=== PATIENT | male | born 1945 | race Caucasian/White ===

== ENCOUNTER 2020-07-26 09:58 | Outpatient (REF) | payer MEDICARE, SELFPAY ==
[2020-07-26 13:27] LABS: MANUAL DIFF FLAG NO
[2020-07-26 13:39] LABS: Basophils Percent Auto 0.6 % (0-2); Eosinophils Absolute Auto 0.4 X10*3/uL (0.0-0.4); Hematocrit 42.6 % (42-52); Hemoglobin 13.5 g/dl (14.0-18.0); Imm Gran Abs Auto 0.03 X10*3/uL (0.00-0.03); Imm Gran Pct Auto 0.4 % (0.0-0.4); Lymphocytes Absolute Auto 1.5 X10*3/uL (1.2-4.9); Mean Corpuscular HGB Conc 31.7 g/dl (31.0-36.0); Mean Corpuscular Hemoglobin 30.5 pg (27.0-33.0); Mean Corpuscular Volume 96.2 fL (80-98); Mean Platelet Volume 9.9 fL (9.4-12.4); Monocytes Absolute Auto 0.8 X10*3/uL (0.1-1.2); Neutrophils Absolute Auto 4.3 X10*3/uL (2.0-8.3); Platelet Count 277 X10*3/uL (160-400); Red Blood Count 4.43 X10*6/uL (4.60-5.80); Red Cell Distribution Width 12.8 % (11.0-16.0)
[2020-07-26 14:02] LABS: Alanine Aminotransferase 19 U/L (0-40); Albumin Level 4.4 g/dL (3.5-5.0); Alkaline Phosphatase 71 U/L (39-117); Anion Gap 16 (12-20); Aspartate Amino Transferase 26 U/L (5-37); Bilirubin Total 0.3 mg/dL (0.0-1.0); Blood Urea Nitrogen 15 mg/dL (9-16); Calcium 8.7 mg/dL (8.4-10.2); Carbon Dioxide 24 mmol/L (22-29); Chloride 104 mmol/L (96-108); Estimated Glomerular Filt Rate > 60; Glucose Random 80 mg/dL (60-115); Potassium 5.3 mmol/l (3.3-5.1); Sodium 139 mmol/L (135-145); Total Protein 7.8 g/dL (6.5-8.0)
[2020-07-26 14:25] LABS: Free T4 (Free Thyroxine) 1.21 ng/dL (0.71-1.85); Thyroid Stimulating Hormone 0.34 mIU/mL (0.32-4.0)
== END 2020-07-26 09:59 | disposition home or self-care (01) ==
LOC: HO.10HDL 09:58
PROVIDERS: Visit Provider Internal Medicine
DX: I25.10 Atherosclerotic heart disease of native coronary artery without angina pectoris (principal); E03.9 Hypothyroidism, unspecified; J44.9 Chronic obstructive pulmonary disease, unspecified
CPT/HCPCS: 36415; 80053; 84439; 84443; 85025

== ENCOUNTER 2020-10-25 09:28 | Outpatient (REF) | payer MEDICARE, SELFPAY ==
[2020-10-25 10:08] LABS: MANUAL DIFF FLAG NO
[2020-10-25 10:14] LABS: Basophils Percent Auto 0.5 % (0-2); Eosinophils Absolute Auto 0.3 X10*3/uL (0.0-0.4); Eosinophils Percent Auto 3.9 % (0-4); Hematocrit 43.9 % (42-52); Hemoglobin 14.2 g/dl (14.0-18.0); Imm Gran Abs Auto 0.03 X10*3/uL (0.00-0.03); Imm Gran Pct Auto 0.4 % (0.0-0.4); Lymphocytes Absolute Auto 1.5 X10*3/uL (1.2-4.9); Lymphocytes Percent Auto 19.1 % (20-40); Mean Corpuscular HGB Conc 32.3 g/dl (31.0-36.0); Mean Corpuscular Hemoglobin 30.8 pg (27.0-33.0); Mean Corpuscular Volume 95.2 fL (80-98); Mean Platelet Volume 9.3 fL (9.4-12.4); Monocytes Absolute Auto 0.9 X10*3/uL (0.1-1.2); Monocytes Percent Auto 11.1 % (2-11); Platelet Count 261 X10*3/uL (160-400); Red Blood Count 4.61 X10*6/uL (4.60-5.80); Red Cell Distribution Width 12.7 % (11.0-16.0); White Blood Count 7.6 X10*3/uL (4.8-10.8)
[2020-10-25 10:44] LABS: Alanine Aminotransferase 21 U/L (0-40); Albumin Level 4.6 g/dL (3.5-5.0); Alkaline Phosphatase 75 U/L (39-117); Anion Gap 13 (12-20); Aspartate Amino Transferase 23 U/L (5-37); Bilirubin Total 0.4 mg/dL (0.0-1.0); Blood Urea Nitrogen 21 mg/dL (9-16); Calcium 9.1 mg/dL (8.4-10.2); Carbon Dioxide 26 mmol/L (22-29); Chloride 103 mmol/L (96-108); Estimated Glomerular Filt Rate > 60; Glucose Random 89 mg/dL (60-115); Potassium 5.5 mmol/l (3.3-5.1); Sodium 136 mmol/L (135-145)
[2020-10-25 11:08] LABS: Free T4 (Free Thyroxine) 1.21 ng/dL (0.71-1.85); Thyroid Stimulating Hormone 0.19 uIU/mL (0.32-4.0)
== END 2020-10-25 09:29 | disposition home or self-care (01) ==
LOC: HO.10HDL 09:28
PROVIDERS: Visit Provider Internal Medicine
DX: I25.10 Atherosclerotic heart disease of native coronary artery without angina pectoris (principal); J44.9 Chronic obstructive pulmonary disease, unspecified; E03.9 Hypothyroidism, unspecified
CPT/HCPCS: 36415; 80053; 84439; 84443; 85025

== ENCOUNTER 2021-01-24 09:57 | Outpatient (REF) | payer MEDICARE, SELFPAY ==
[2021-01-24 14:01] LABS: Alanine Aminotransferase 19 U/L (0-40); Albumin Level 4.5 g/dL (3.5-5.0); Alkaline Phosphatase 82 U/L (39-117); Anion Gap 16 (12-20); Aspartate Amino Transferase 20 U/L (5-37); Bilirubin Total 0.5 mg/dL (0.0-1.0); Blood Urea Nitrogen 15 mg/dL (9-16); Calcium 9.4 mg/dL (8.4-10.2); Carbon Dioxide 26 mmol/L (22-29); Chloride 103 mmol/L (96-108); Estimated Glomerular Filt Rate > 60; Glucose Random 92 mg/dL (60-115); Potassium 5.3 mmol/L (3.3-5.1); Sodium 140 mmol/L (135-145)
== END 2021-01-24 09:58 | disposition home or self-care (01) ==
LOC: HO.10HDL 09:57
PROVIDERS: Visit Provider Internal Medicine
DX: J44.9 Chronic obstructive pulmonary disease, unspecified (principal); E03.9 Hypothyroidism, unspecified; I25.10 Atherosclerotic heart disease of native coronary artery without angina pectoris
CPT/HCPCS: 36415; 80053

== ENCOUNTER 2021-04-29 11:22 | Outpatient (REF) | payer MEDICARE, SELFPAY | END 2021-04-29 11:23 | disposition home or self-care (01) | LOC: HO.LNP 11:22 | PROVIDERS: Visit Provider Nurse Practitioner Family | DX: Z20.822 Contact with and (suspected) exposure to COVID-19 (principal); J40 Bronchitis, not specified as acute or chronic | CPT/HCPCS: U0003; U0005 ==

== ENCOUNTER 2021-05-01 14:24 | Outpatient (REF) | payer MEDICARE, SELFPAY ==
--- NOTE | ~2021-05-01 | XR_ITS ---
EXAMINATION: XR CHEST CLINICAL INFORMATION: Covid positive, cough. COMPARISON: None TECHNIQUE: 2 views of the chest were obtained. FINDINGS: The lungs are hyperinflated but clear of acute process. The heart size and pulmonary vascularity is normal. There are median sternotomy sutures. There is a distal descending aortic stent in place. No gross bony abnormality seen. XR/XR chest 2V IMPRESSION: Unremarkable chest exam.
== END 2021-05-01 14:25 | disposition home or self-care (01) ==
LOC: HO.HMGCX 14:24
PROVIDERS: PCP Internal Medicine; Visit Provider Internal Medicine
DX: Z13.89 Encounter for screening for other disorder (principal)
CPT/HCPCS: 71046

== ENCOUNTER 2021-05-03 16:20 | Inpatient (IN) | payer MEDICARE, SELFPAY ==
[2021-05-03] VITALS (8 sets, daily range): BP systolic 117–146; BP diastolic 44–78; PULSE 76–98; RESP 16–22; TEMP 36.4–38.8; O2SAT 89–96; BMI 29.5
--- NOTE | 2021-05-03 | ECG_ITS ---
Test Reason : SOB Blood Pressure : / mmHG Vent. Rate : 093 BPM Atrial Rate : 093 BPM P-R Int : 224 ms QRS Dur : 144 ms QT Int : 376 ms P-R-T Axes : 061 -07 023 degrees QTc Int : 467 ms Sinus rhythm with 1st degree A-V block Possible Left atrial enlargement Right bundle branch block Possible Lateral infarct (cited on or before 20-NOV-2003) Inferior infarct (cited on or before 20-NOV-2003) Abnormal ECG When compared with ECG of 20-JUN-2019 17:02, No significant change was found Referred By: Rufino Olivas Electronically Signed By:MAGNUS MKCEE
--- NOTE | ~2021-05-03 | CT_ITS ---
EXAMINATION: CT ANGIOGRAM OF THE CHEST WITH AND WITHOUT CONTRAST (CT PULMONARY ANGIOGRAM FOR PE) CLINICAL INFORMATION: COVID-19 positive, elevated D-dimer, rule out PE COMPARISON: 06/20/2019 TECHNIQUE: Prior to contrast administration, noncontrast localization images were obtained. Subsequently, multidetector volumetric imaging was performed from the thoracic inlet to below the diaphragms following the administration of 71.2 mL Omnipaque 350 intravenous contrast. No contrast reaction reported Sagittal, coronal, and MIP oblique sagittal reformatted images were obtained on the CT workstation, uploaded to PACS, and reviewed. This CT examination was performed using dose optimization techniques as appropriate, variously including the following: *Automated exposure control *Adjustment of mA and/or kV according to patient size (this includes techniques or standardized protocols for targeted exams where dose is matched to indication/reason for exam; i.e. extremities or head) *Use of iterative reconstruction technique Total exam dose-length product 476 mGy-cm FINDINGS: QUALITY OF STUDY/CONTRAST BOLUS: Satisfactory at the central, lobar, and proximal segmental levels. Respiratory motion limits assessment in multiple areas at the more distal segmental and subsegmental branches. PULMONARY ARTERIES: No central or segmental pulmonary emboli. THORACIC AORTA: Calcific and fibrofatty atheromatous plaques are present throughout the thoracic aorta. 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 No evidence of dissection LUNG: Moderate to severe centrilobular pulmonary emphysema, most pronounced at the apices. Dependent atelectasis is present in the posterior and lateral basilar segments of the lower lobes. Patchy foci of groundglass attenuation are evident within the left upper lobe at the lingula and in the lateral aspect of the right middle lobe. These are nonspecific. No dense airspace consolidation. Central airways are clear. No pulmonary nodules. PLEURA: No pleural effusion or pneumothorax. MEDIASTINUM: Coronary artery calcifications. Heart appears normal in size. No pericardial effusion. No mediastinal or hilar adenopathy. No evidence of septal bowing or right heart strain. CHEST WALL/AXILLA: No axillary or internal mammary lymphadenopathy. Status post median sternotomy. OSSEOUS STRUCTURES: No acute fracture or malalignment. Moderate multilevel degenerative disc disease in the thoracic spine. UPPER ABDOMEN: Status post cholecystectomy. No acute abnormalities are identified in the upper abdomen. Vascular stent graft is again noted in the abdominal aorta with multiple stents at the ostia of the visceral branches. No reflux of contrast into the hepatic veins to suggest elevated right heart pressures. CT/CT angio chest PE protocol IMPRESSION: 1. No evidence of pulmonary embolus. 2. Moderate severe pulmonary emphysema. 3. Ill-defined foci groundglass attenuation in the lingula and lateral aspect of the right middle lobe which could correspond to multifocal bilateral pneumonia, but are not specific. No dense airspace consolidation. 4. Dependent atelectasis at the lung bases. VTE: negative
--- NOTE | ~2021-05-03 | XR_ITS ---
EXAMINATION: XR CHEST CLINICAL INFORMATION: COVID positive. Rule out pneumonia. COMPARISON: 05/01/2021 TECHNIQUE: Frontal view of the chest was obtained. FINDINGS: Lungs are hyperexpanded. Hyperlucencies in the upper lobes likely correspond to underlying emphysema. Minimal dependent atelectasis. No focal airspace consolidation. Sternal wires and cardiac leads overlie the chest. Cardiac and mediastinal contours are normal. Pulmonary vasculature is unremarkable. Bones are osteopenic. XR/XR chest 1V IMPRESSION: No acute pulmonary findings.
--- NOTE | ~2021-05-03 | XR_ITS ---
EXAMINATION: XR CHEST CLINICAL INFORMATION: Worsening hypoxia. COMPARISON: None TECHNIQUE: Frontal view of the chest was obtained. FINDINGS: There is increased lucency in the right lung apex with no distinct or visible pneumothorax. Right jugular central venous catheter is tip is in the right subclavian vein. The endotracheal tube tip is 1.3 cm above the alex. Enteric tube tip is below diaphragm. The lungs are expanded with significant increase interstitial markings in both lungs likely cord edema and/or interstitial pneumonitis. No pleural effusion is seen. Heart size is within normal limits. There are median sternotomy sutures and distal descending thoracic aortic stent in place. XR/XR chest 1V IMPRESSION: Support lines and catheters are similar to previous study with right jugular central venous catheter tip in the right subclavian vein. Diffuse bilateral lower lobe and midlung interstitial prominence question interstitial edema versus pneumonitis. There is increased lucency in the right upper lobe likely secondary to bullous changes. A pneumothorax is not visualized.. There is no pleural effusion either.
--- NOTE | ~2021-05-03 | XR_ITS ---
EXAMINATION: XR CHEST CLINICAL INFORMATION: Status post ETT and TLC placement. COMPARISON: Chest 05/03/2021. TECHNIQUE: Frontal view of the chest was obtained. FINDINGS: There is a new right central venous catheter with its tip extending the wrong direction towards the axillary vein. It needs to be repositioned. There is an endotracheal tube with its tip 1.5 cm above the alex. New endotracheal tube tip is below the diaphragm.. Both lungs are well-expanded with increased cyst in interstitial markings most prominent in the lung bases likely interstitial edema. There is no pleural effusion. Heart size enlarged. There is aortic stent in the distal descending and proximal abdominal aorta. No gross bony abnormality seen. XR/XR chest 1V IMPRESSION: Right jugular central venous catheter is directed to is a subclavian vein and needs to be repositioned. The endotracheal tube and enteric tube are in fair position. There is cardiomegaly with increased interstitial markings suggestive of edema.
--- NOTE | 2021-05-03 17:00 | ED_ITS ---
HPI - General Adult General Chief complaint: Dyspnea Stated complaint: SOB - covid+ Time Seen by Provider: 05/03/21 16:24 Source: patient Mode of arrival: EMS Limitations: other (Very hard of hearing) History of Present Illness HPI narrative: 75-year-old male who presents emergency department for evaluation of weakness and fall. Patient is very hard of hearing and was difficult to get information from him. He states that he was feeling very weak and fell. He denied hitting his head or having any injury from the fall. He states that he was unable to get up and called an ambulance. The patient was seen in the outpatient clinic on 04/29/2024 for evaluation of 4 days of cough. The patient was started on Zithromax and had a COVID-19 test which was positive. Patient states that he has been having an intermittent cough. He denied chest pain. He does feel short of breath at rest but denied dyspnea on exertion. He denied fever or chills. States that he has lost his appetite and has had very little food or fluid over the past 24 hours. He had 1 episode of diarrhea. The patient did have his 1st Moderna COVID-19 vaccination on April 22, 2021 and is due for his 2nd vaccination in May 2021. 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 Related Data Home Medications Medication Instructions Recorded Confirmed alprazolam 1 mg tablet 1 mg PO DAILY 05/03/21 05/03/21 amlodipine 10 mg tablet 10 mg PO DAILY 05/03/21 05/03/21 azithromycin 250 mg tablet 250 mg PO DAILY 05/03/21 05/03/21 gemfibrozil 600 mg tablet 600 mg PO BID 05/03/21 05/03/21 levothyroxine 125 mcg tablet 125 mcg PO DAILY 05/03/21 05/03/21 lisinopril 40 mg tablet 40 mg PO DAILY 05/03/21 05/03/21 omeprazole 20 mg capsule,delayed 20 mg PO BID 05/03/21 05/03/21 release rosuvastatin 40 mg tablet 40 mg PO DAILY 05/03/21 05/03/21 Allergies Allergy/AdvReac Type Severity Reaction Status Date / Time No Known Allergies Allergy Mild UNKNOWN Verified 05/03/21 16:27 Review of Systems Review of Systems: Yes all other systems are reviewed and are negative [facility] Past Medical History [facility] Narrative: Past medical history: Hypertension, coronary disease, myocardial infarction. Past surgical history: CABG 10 years prior. Social history: Patient was of the son. He is a former smoker and stop smoking 10 years prior. He occasionally drinks alcohol. He denies drug use. Medical History (Updated 05/03/21 @ 21:03 by Rufino Olivas MD) COVID-19 Social History Social History Alcohol intake: never Patient Tobacco Use Status: Tobacco use Unknown Use of substances other than those prescribed or required for medical reasons: No Advance Directives: No Advance Directives Information Provided: Yes Physical Exam Vital Signs: Vital Signs: Last Vital Signs Temp 97.6 F 05/03/21 20:33 Pulse 83 05/03/21 20:33 Resp 18 05/03/21 20:33 BP 143/66 H 05/03/21 20:33 Pulse Ox 95 05/03/21 20:33 Body Mass Index 29.5 Const: General: cooperative Orientation/consciousness: oriented to person and oriented to place Limitations: no limitations HENMT: Head: Yes normal to inspection, Yes normocephalic and Yes atraumatic Ears: external ears normal General nose exam: Normal external nose present Face and sinus: Yes normal facial exam Mouth: Normal oral and palatal mucosa present Throat: Yes posterior oropharynx normal Eyes: General: appearance normal, both eyes and all related structures Alignment and Position: alignment normal Periorbital: periorbital findings normal Eyelids: Yes eyelids normal Conjunctivae: conjunctivae normal Sclerae: sclerae normal Pupils: Equal, round and reactive pupils present Direct Ophthalmoscopy: normal light reflex Neck: Neck: Yes normal visual inspection and Yes supple Thyroid: Thyroid normal Chest: Chest palpation & inspection: normal inspection of the chest and normal palpation of entire chest wall Resp: Effort & Inspection: normal respiratory effort and able to speak in complete sentences Auscultation: clear to auscultation bilaterally, no crackles, no rales and no rhonchi Cardio: Rate: regular rate Rhythm: regular rhythm Heart sounds: S1 normal heart sound present, S2 normal heart sound present and no murmurs GI: Inspection: Yes normal to inspection Palpation (GI): Soft to palpation, nontender and no guarding Auscultation: normal bowel sounds : General: Yes no CVA tenderness Back/Spine/Pelvis: Back: no CVA tenderness Cervical Spine: normal cervical lordosis Thoracic/Lumbar Spine: thoracic and lumbar spine normal to inspection Skin: General skin exam: no rashes or lesions noted Lesions: no lesions Rashes: no rashes Trauma: no lacerations or abrasions Neuro: General: oriented to person and oriented to place Cranial nerves: Yes CN's II-XII intact bilaterally and Yes Equal, round and reactive pupils present Cognition (Neuro): normal cognition Motor exam (neuro): 5/5 motor strength present throughout Extrem: Right upper extremity: normal to inspection and full ROM Psych: Appearance: grossly normal and well kempt Mental Status: mental status grossly normal Speech and movement: Normal speech and movement present Attitude: cooperative Thought content: Normal thought content present Course Course Course Narrative: 75-year-old male he received 1 COVID-19 vaccination April 22, 2021 seen at the walk-in clinic on 04/29/2021 diagnosed with bronchitis started on Zithromax whose COVID 19 test was positive now presents with weakness, cough, shortness of breath, decreased appetite and poor oral intake and fall today secondary to weakness. Paramedics found the patient's O2 saturation to be 89% on room air. In the emergency department the patient had a rectal temperature of a 101.8? F, respiratory rate of 22 and O2 saturation of 90% on room air. Patient extremely hard of hearing otherwise his examination is unremarkable. Patient does meet SIRS criteria however this is most likely secondary to viral infection. Given his poor oral intake however I am concerned that he is dehydrated therefore he will be given 30 cc/kilogram IV fluid bolus. Laboratory evaluation, EKG and chest x-ray will be obtained. Patient will be treated with dexamethasone 6 mg IV. 2035: Laboratory evaluation revealed slightly low platelet count of a 217405, elevated PTT of 40.8, elevated D-dimer of 1881, low sodium 130, low bicarb of 17, elevated BUN creatinine of 281.45, elevated ferritin of 325, elevated high sensitive troponin of 39.7. Elevated CRP of 1.70. Lactic acid was normal at 2.0. was normal at 0.08. Chest x-ray was unremarkable. CT pulmonary angiogram PE protocol revealed no PE but the patient does have ill-defined ground-glass attenuation in the lingular and lateral aspect of the right middle lobe consistent with a multifocal bilateral pneumonia. These findings are consistent with COVID-19 pneumonia. Given his weakness is hypoxia, the patient only to be hospitalized for further management. I will discuss the patient's presentation with the covering hospitalist. 2100: I did discuss the patient's presentation with the covering hospitalist, Dr. Jeaneth Iglesias and the patient will be admitted to the [facility] for further treatment. 2121: Patient's repeat 3 hour high sensitivity troponin was 48.3, this is not a significant increase from the 1st value 39.7. Medical Decision Making Lab Data Result diagrams: 05/03/21 17:31 05/03/21 17:31 Labs: Lab Results 05/03/21 05/03/21 05/03/21 Range/Units 16:41 17:31 17:31 WBC 5.3 (4.8-10.8) X10*3/uL RBC 4.70 (4.60-5.80) X10*6/uL Hgb 14.2 (14.0-18.0) g/dl Hct 42.9 (42-52) % MCV 91.3 (80-98) fL MCH 30.2 (27.0-33.0) pg MCHC 33.1 (31.0-36.0) g/dl RDW 13.2 (11.0-16.0) % Plt Count 145 L D (160-400) X10*3/uL MPV 9.9 (9.4-12.4) fL Immature Gran % (Auto) 0.8 H (0.0-0.4) % Neut % (Auto) 79.9 H (45-73) % Lymph % (Auto) 10.5 L (20-40) % [place] % (Auto) 8.6 (2-11) % Eos % (Auto) 0.0 (0-4) % Baso % (Auto) 0.2 (0-2) % Lymph # (Auto) 0.6 L (1.2-4.9) X10*3/uL [place] # (Auto) 0.5 (0.1-1.2) X10*3/uL Eos # (Auto) 0.0 (0.0-0.4) X10*3/uL Baso # (Auto) 0.0 (0.0-0.2) X10*3/uL Abs Immat Gran (auto) 0.04 H (0.00-0.03) X10*3/uL Absolute Neuts (auto) 4.2 (2.0-8.3) X10*3/uL Absolute Nucleated RBC 0.000 (0.0-0.012) X10*3/uL Nucleated RBC % (auto) 0.0 (0.0-0.2) /100WBC PT 11.8 (9.9-13.0) SEC INR 1.0 (0.9-1.1) APTT 40.8 H (24.1-38.0) SEC D-Dimer 1881 NG/ML O2 Saturation % ABG pH at Pt Temp (7.35-7.45) ABG pH (Temp Correct) (7.35-7.45) ABG pCO2 at Pt Temp (32-45) mmHg ABG pCO2 (Temp Corrct (32-45) mmHg ABG pO2 at Pt Temp (83-108) mmHg ABG pO2 (Temp Correct (83-108) ABG HCO3 (22-26) mmol/L ABG Base Excess (Actual) mmol/L Sodium (135-145) mmol/L Potassium (3.3-5.1) mmol/L Chloride (96-108) mmol/L Carbon Dioxide (22-29) mmol/L Anion Gap (12-20) BUN (9-16) mg/dL Creatinine (0.5-1.4) mg/dL Estim Creat Clear Calc Estimated GFR POC Glucose 133 H (60-115) mg/dL Random Glucose (60-115) mg/dL Lactic Acid (0.5-2.0) mmol/L Calcium (8.4-10.2) mg/dL Ferritin (20-250) ng/mL Total Bilirubin (0.0-1.0) mg/dL Lactate Dehydrogenase (118-273) U/L Troponin I High Sens (<3.5-35.0) ng/L C-Reactive Protein (< or = 0.50) mg/dL Procalcitonin ng/mL 05/03/21 05/03/21 05/03/21 Range/Units 17:31 17:31 17:31 WBC (4.8-10.8) X10*3/uL RBC (4.60-5.80) X10*6/uL Hgb (14.0-18.0) g/dl Hct (42-52) % MCV (80-98) fL MCH (27.0-33.0) pg MCHC (31.0-36.0) g/dl RDW (11.0-16.0) % Plt Count (160-400) X10*3/uL MPV (9.4-12.4) fL Immature Gran % (Auto) (0.0-0.4) % Neut % (Auto) (45-73) % Lymph % (Auto) (20-40) % [place] % (Auto) (2-11) % Eos % (Auto) (0-4) % Baso % (Auto) (0-2) % Lymph # (Auto) (1.2-4.9) X10*3/uL [place] # (Auto) (0.1-1.2) X10*3/uL Eos # (Auto) (0.0-0.4) X10*3/uL Baso # (Auto) (0.0-0.2) X10*3/uL Abs Immat Gran (auto) (0.00-0.03) X10*3/uL Absolute Neuts (auto) (2.0-8.3) X10*3/uL Absolute Nucleated RBC (0.0-0.012) X10*3/uL Nucleated RBC % (auto) (0.0-0.2) /100WBC PT (9.9-13.0) SEC INR (0.9-1.1) APTT (24.1-38.0) SEC D-Dimer NG/ML O2 Saturation % ABG pH at Pt Temp (7.35-7.45) ABG pH (Temp Correct) (7.35-7.45) ABG pCO2 at Pt Temp (32-45) mmHg ABG pCO2 (Temp Corrct (32-45) mmHg ABG pO2 at Pt Temp (83-108) mmHg ABG pO2 (Temp Correct (83-108) ABG HCO3 (22-26) mmol/L ABG Base Excess (Actual) mmol/L Sodium 130 L (135-145) mmol/L Potassium 4.3 (3.3-5.1) mmol/L Chloride 99 (96-108) mmol/L Carbon Dioxide 17 L (22-29) mmol/L Anion Gap 18 (12-20) BUN 28 H D (9-16) mg/dL Creatinine 1.45 H (0.5-1.4) mg/dL Estim Creat Clear Calc 49.0 Estimated GFR 47 POC Glucose (60-115) mg/dL Random Glucose 118 H (60-115) mg/dL Lactic Acid 2.0 (0.5-2.0) mmol/L Calcium 8.5 D (8.4-10.2) mg/dL Ferritin 325 H (20-250) ng/mL Total Bilirubin 0.4 (0.0-1.0) mg/dL Lactate Dehydrogenase 224 (118-273) U/L Troponin I High Sens 39.7 H* (<3.5-35.0) ng/L C-Reactive Protein 1.70 H (< or = 0.50) mg/dL Procalcitonin ng/mL 05/03/21 05/03/21 05/03/21 Range/Units 17:31 17:31 20:37 WBC (4.8-10.8) X10*3/uL RBC (4.60-5.80) X10*6/uL Hgb (14.0-18.0) g/dl Hct (42-52) % MCV (80-98) fL MCH (27.0-33.0) pg MCHC (31.0-36.0) g/dl RDW (11.0-16.0) % Plt Count (160-400) X10*3/uL MPV (9.4-12.4) fL Immature Gran % (Auto) (0.0-0.4) % Neut % (Auto) (45-73) % Lymph % (Auto) (20-40) % [place] % (Auto) (2-11) % Eos % (Auto) (0-4) % Baso % (Auto) (0-2) % Lymph # (Auto) (1.2-4.9) X10*3/uL [place] # (Auto) (0.1-1.2) X10*3/uL Eos # (Auto) (0.0-0.4) X10*3/uL Baso # (Auto) (0.0-0.2) X10*3/uL Abs Immat Gran (auto) (0.00-0.03) X10*3/uL Absolute Neuts (auto) (2.0-8.3) X10*3/uL Absolute Nucleated RBC (0.0-0.012) X10*3/uL Nucleated RBC % (auto) (0.0-0.2) /100WBC PT (9.9-13.0) SEC INR (0.9-1.1) APTT (24.1-38.0) SEC D-Dimer NG/ML O2 Saturation 94.0 % ABG pH at Pt Temp 7.40 (7.35-7.45) ABG pH (Temp Correct) 7.38 (7.35-7.45) ABG pCO2 at Pt Temp 26 L (32-45) mmHg ABG pCO2 (Temp Corrct 27 L (32-45) mmHg ABG pO2 at Pt Temp 82 L (83-108) mmHg ABG pO2 (Temp Correct 89 (83-108) ABG HCO3 16 L (22-26) mmol/L ABG Base Excess (Actual) -6.4 mmol/L Sodium (135-145) mmol/L Potassium (3.3-5.1) mmol/L Chloride (96-108) mmol/L Carbon Dioxide (22-29) mmol/L Anion Gap (12-20) BUN (9-16) mg/dL Creatinine (0.5-1.4) mg/dL Estim Creat Clear Calc Estimated GFR POC Glucose (60-115) mg/dL Random Glucose (60-115) mg/dL Lactic Acid (0.5-2.0) mmol/L Calcium (8.4-10.2) mg/dL Ferritin (20-250) ng/mL Total Bilirubin (0.0-1.0) mg/dL Lactate Dehydrogenase (118-273) U/L Troponin I High Sens 48.3 H* (<3.5-35.0) ng/L C-Reactive Protein (< or = 0.50) mg/dL Procalcitonin 0.08 ng/mL Imaging Data CT pulmonary angiogram PE study: Radiologist's impression: Launch?Image [id number] [place] [address] CT Scan Report Signed Patient: Stefan Carvajal MR#: [id number] : 1945 Acct:[id number] Age/Sex: 75 / M ADM Date: 05/03/21 Loc: HO.ED Attending Dr: Ordering Physician: Rufino Olivas MD Date of Service: 05/03/21 Procedure(s): CT angio chest PE protocol Accession Number(s): [id number] cc: Rufino Olivas MD~ EXAMINATION: CT ANGIOGRAM OF THE CHEST WITH AND WITHOUT CONTRAST (CT PULMONARY ANGIOGRAM FOR PE) CLINICAL INFORMATION: ?COVID-19 positive, elevated D-dimer, rule out PE IMPRESSION: 1. No evidence of pulmonary embolus. 2. Moderate severe pulmonary emphysema. 3. Ill-defined foci groundglass attenuation in the lingula and lateral aspect of the right middle lobe which could correspond to multifocal bilateral pneumonia, but are not specific. No dense airspace consolidation. 4. Dependent atelectasis at the lung bases. ? VTE: negative ECG Data Attestation: I personally reviewed and interpreted this ECG as follows: Interpretation: Sinus rhythm with a rate of 93, first-degree AV block with MN interval of 244 milliseconds, prolonged QRS of 144 milliseconds, normal QTC of 467 milliseconds, the patient has a right bundle-branch block, there are Q-waves in lead 2, 3 and AVF, there is no ST segment elevation, there is ST segment depression V1 through V4 with inverted T-waves in V1 through V3 secondary to the right bundle-branch block. There is no old EKG for comparison. Critical Care Time Critical Care Time Critical Care Time: Yes Total Critical Care Time: 45 Attestation: Critical Care: The patient was critically ill with a high probability of imminent or life threatening deterioration. I spent greater than 30 minutes of discontinuous time evaluating the patient,delivering critical care at the bedside, discussing and evaluating pertinent data with consultants. Critical care time does not include time spent performing separately billable p rocedures or teaching. Total time spent performing critical care was 45 minutes. Discharge Plan Discharge Clinical Impression: Pneumonia due to 2019 novel coronavirus, Hypoxic, Weakness Patient Disposition: Admitted As Inpatient
[2021-05-03 17:38] LABS: ABG Base Excess -6.4 mmol/L; ABG HCO3 16 mmol/L (22-26); ABG pCO2 26 mmHg (32-45); ABG pCO2 TC 27 mmHg (32-45); ABG pH TC 7.38 (7.35-7.45); ABG pO2 82 mmHg (83-108); ABG pO2 TC 89 (83-108)
[2021-05-03] MEDS: Acetaminophen 325 MG TABLET 975 MG PO (17:38)
[2021-05-03] MEDS: dexAMETHasone sod phosphate 4 MG/ML VIAL 6 MG IVPUSH (17:38)
[2021-05-03] MEDS: 0.9 % Sodium Chloride 2,721.54 ML 2721.54 ML IVCONT (17:39)
[2021-05-03 17:43] LABS: MANUAL DIFF FLAG NO
[2021-05-03 17:55] LABS: Prothrombin Time 11.8 SEC (9.9-13.0)
[2021-05-03 17:56] LABS: Basophils Percent Auto 0.2 % (0-2); Hematocrit 42.9 % (42-52); Hemoglobin 14.2 g/dl (14.0-18.0); Imm Gran Abs Auto 0.04 X10*3/uL (0.00-0.03); Imm Gran Pct Auto 0.8 % (0.0-0.4); Lymphocytes Absolute Auto 0.6 X10*3/uL (1.2-4.9); Lymphocytes Percent Auto 10.5 % (20-40); Mean Corpuscular HGB Conc 33.1 g/dl (31.0-36.0); Mean Corpuscular Hemoglobin 30.2 pg (27.0-33.0); Mean Corpuscular Volume 91.3 fL (80-98); Mean Platelet Volume 9.9 fL (9.4-12.4); Monocytes Absolute Auto 0.5 X10*3/uL (0.1-1.2); Monocytes Percent Auto 8.6 % (2-11); Neutrophils Absolute Auto 4.2 X10*3/uL (2.0-8.3); Neutrophils Percent Auto 79.9 % (45-73); Platelet Count 145 X10*3/uL (160-400); Red Cell Distribution Width 13.2 % (11.0-16.0); White Blood Count 5.3 X10*3/uL (4.8-10.8)
[2021-05-03 17:58] LABS: Partial Thromboplastin Time 40.8 SEC (24.1-38.0)
[2021-05-03 18:06] LABS: D Dimer 1881 NG/ML
[2021-05-03 18:20] LABS: Anion Gap 18 (12-20); Bilirubin Total 0.4 mg/dL (0.0-1.0); Blood Urea Nitrogen 28 mg/dL (9-16); Calcium 8.5 mg/dL (8.4-10.2); Carbon Dioxide 17 mmol/L (22-29); Chloride 99 mmol/L (96-108); Estimated Glomerular Filt Rate 47; Glucose Random 118 mg/dL (60-115); Potassium 4.3 mmol/L (3.3-5.1); Sodium 130 mmol/L (135-145)
[2021-05-03 18:25] LABS: Troponin-I High Sensitivity 39.7 ng/L (<3.5-35.0)
[2021-05-03 18:32] LABS: Lactate Dehydrogenase 224 U/L (118-273)
[2021-05-03 18:44] LABS: Ferritin 325 ng/mL (20-250); Procalcitonin 0.08 ng/mL
--- NOTE | 2021-05-03 18:46 | PC.NURSE ---
pt on 2 liters of oxygen,has been sleeping and oxygen saturations are 94-96%. HE has had IVF, has jno tachycardia, BP and other VS WNL.
--- NOTE | 2021-05-03 19:01 | PC.NURSE ---
Report taken from OLLIE Solis. Pt off to CT on hospital bed.
--- NOTE | 2021-05-03 19:16 | PC.NURSE ---
Pt returns from CT on hospital bed. Pt unsure of what medications he is taking at home. Pt denies pain/SOB at this time, on 2 lpm, satting @ 96%. VSS at this time. Continue to monitor.
[2021-05-03] MEDS: iohexoL 350 MG/ML 100 ML INFUS..BTL IV (19:19)
--- NOTE | 2021-05-03 19:43 | PC.NURSE ---
Med Rec completed from pts refill history. Pt unable to confirm meds/doses and does not have a list on him.
[2021-05-03 20:00] LABS: Glucose, Whole Blood 133 mg/dL (60-115)
[2021-05-03 20:08] LABS: ABG Refer to POC result
--- NOTE | 2021-05-03 20:53 | PC.NURSE ---
MD at bedside discussing results and plan of care. Pt requesting food/drink.
[2021-05-03 21:14] LABS: Troponin-I High Sensitivity 48.3 ng/L (<3.5-35.0)
--- NOTE | 2021-05-03 21:16 | PC.NURSE ---
Son calling for update on pt condition. This RN updating son on pt condition and plan to admit.
[2021-05-03] MEDS: Heparin Sodium,Porcine 5,000 UNIT/ML VIAL 5000 UNIT SUBCUT (22:54)
--- NOTE | 2021-05-03 22:55 | PC.NURSE ---
First call up to [facility] [place] for report. juan antonio sawant unavailable.
--- NOTE | 2021-05-03 23:13 | PC.NURSE ---
This RN calling [facility], [facility] unable to take report at this time.
[2021-05-04] VITALS (8 sets, daily range): BP systolic 100–177; BP diastolic 59–78; PULSE 72–92; RESP 18–20; TEMP 36–36.6; O2SAT 90–97
[2021-05-04] MEDS: 0.9 % Sodium Chloride Flush 3 ML SYRINGE IVFLUSH ×3 (01:19→18:20)
[2021-05-04] MEDS: Omeprazole 20 MG CAPSULE.DR PO ×2 (05:55→18:22)
--- NOTE | 2021-05-04 06:26 | PM.IMHP ---
History of Present Illness Date of Service: 05/03/21 Chief Complaint: Weakness, fall, shortness of breath Past medical history of HTN, hypothyroidism, CAD status post CABG, who presents to the hospital with complaints of weakness, fall, and shortness of breath. Patient reports that about a week ago he started having cold-like symptoms with congestion, coughing, and was diagnosed with COVID, he was given Zithromax and felt like his symptoms improved but today he felt very weak and had a fall without injuring his head. No loss of consciousness, no prodromal or postictal symptoms. Patient reports that he feels like he just felt too weak and lowered himself to the floor. He denies any chest pain, no palpitations, he reports shortness of breath, some cough with no sputum production, he reports his [id number] who lives in the same household was very sick and that is how he got sick. Patient received his 1st met during a COVID-19 vaccine on April 22 and was supposed is get his 2nd dose in May. He denies any abdominal pain, no nausea or vomiting, no diarrhea constipation, no loss of appetite, no urinary symptoms and no lower extremity edema. On arrival to the ED hemodynamically stable vital significant for a temperature of 101.8? and O2 found to drop to 89% on room air. Lab significant for WBC count of 5.3, platelets of 145 sodium of 130, BUN of 28, creatinine of 1.45 with a baseline around 0.9, of initially 39.7 that increased to 40.3, patient has no chest pain. CRP of 1.7. CT of the chest shows no evidence of PE, moderate to severe pulmonary emphysema, ill-defined foci of ground-glass attenuation in the lingula and lateral aspect of the right middle lobe which could correspond to multifocal bilateral pneumonia Patient will be admitted for further management past medical history as below and confirmed with patient Review of Systems Review of Systems: Yes all other systems are reviewed and are negative [facility] Medical History (Updated 05/04/21 @ 06:36 by Jeaneth Iglesias MD) CAD (coronary artery disease) COVID-19 Hypertension Hypothyroidism Surgical History History of coronary artery bypass graft Social History Household Members: Spouse Housing: House Do you presently have visiting nurse or other home services: No Alcohol intake: never Patient Tobacco Use Status: Tobacco use Unknown Use of substances other than those prescribed or required for medical reasons: No Have you been hit, kicked, punched, or otherwise hurt by someone within the past year? If so, by whom?: No Do you feel safe in your current relationship?: No Is there a partner from a previous relationship who is making you feel unsafe now?: No Are you made to feel afraid or neglected: No Advance Directives: No Advance Directives Information Provided: Yes Do you have thoughts of harming others: None Do you have a plan to hurt others: No Plan Recently lost weight without trying: No Eating poorly because of decreased appetite: No Nutrition Risks: No Nutritional Risk Poor oral hygiene: No Meds Allergies Allergy/AdvReac Type Severity Reaction Status Date / Time No Known Allergies Allergy Mild UNKNOWN Verified 05/03/21 16:27 Active Medications: Current Medications Generic Name Dose Route Start Last Admin Trade Name Freq PRN Reason Stop Dose Admin Acetaminophen 650 mg 05/03/21 22:28 Acetaminophen 325 Mg Tablet PO Q6H PRN Pain, Mild (Pain Scale 1-3) Amlodipine Besylate 10 mg 05/04/21 09:00 Amlodipine Besylate 10 Mg Tablet PO DAILY [facility] Protocol Atorvastatin Calcium 80 mg 05/04/21 09:00 Atorvastatin Calcium 80 Mg Tablet PO DAILY [facility] Docusate Sodium 100 mg 05/03/21 22:28 Docusate Sodium 100 Mg Capsule PO DAILY PRN Constipation Heparin Sodium (Porcine) 5,000 unit 05/03/21 23:00 05/03/21 22:54 Heparin Sodium,Porcine 5,000 Unit/Ml Vial SUBCUT 5,000 unit Q12H [facility] Administration Levothyroxine Sodium 125 mcg 05/04/21 09:00 Levothyroxine Sodium 125 Mcg Tablet PO DAILY [facility] Lisinopril 40 mg 05/04/21 09:00 Lisinopril 40 Mg Tablet PO DAILY [facility] Protocol Omeprazole 20 mg 05/04/21 06:30 05/04/21 05:55 Omeprazole 20 Mg Capsule. PO 20 mg BID@5930,3830 [facility] Administration Ondansetron HCl 4 mg 05/03/21 22:28 Ondansetron Hcl 4 Mg/2 Ml Vial IVPUSH Q8H PRN Nausea and Vomiting Sodium Chloride 3 ml 05/04/21 00:00 05/04/21 01:19 0.9 % Sodium Chloride Flush 3 Ml Syringe IVFLUSH 3 ml QSHIFT [facility] Administration Home Medications Medication Instructions Recorded Confirmed Last Taken Type alprazolam 1 mg tablet 1 mg PO DAILY 05/03/21 05/03/21 Unknown History amlodipine 10 mg tablet 10 mg PO DAILY 05/03/21 05/03/21 Unknown History azithromycin 250 mg tablet 250 mg PO DAILY 05/03/21 05/03/21 Unknown History gemfibrozil 600 mg tablet 600 mg PO BID 05/03/21 05/03/21 Unknown History levothyroxine 125 mcg tablet 125 mcg PO DAILY 05/03/21 05/03/21 Unknown History lisinopril 40 mg tablet 40 mg PO DAILY 05/03/21 05/03/21 Unknown History omeprazole 20 mg capsule,delayed 20 mg PO BID 05/03/21 05/03/21 Unknown History release rosuvastatin 40 mg tablet 40 mg PO DAILY 05/03/21 05/03/21 Unknown History Physical Exam Vital Signs and Narrative: Vital Signs: Last Vital Signs Temp 98 F 05/04/21 03:06 Pulse 72 05/04/21 03:06 Resp 18 05/04/21 03:06 BP 140/62 H 05/04/21 03:06 Pulse Ox 95 05/04/21 03:06 Body Mass Index 29.5 Const: General: cooperative and no acute distress Orientation/consciousness: patient oriented x3 HENMT: Other: Patient has hearing loss and is hard of hearing Eyes: General: appearance normal, both eyes and all related structures Resp: Effort & Inspection: normal respiratory effort and able to speak in complete sentences Auscultation: crackles Cardio: Rate: regular rate Rhythm: regular rhythm GI: Palpation (GI): Soft to palpation Auscultation: normal bowel sounds Skin: General skin exam: no rashes or lesions noted Neuro: General: patient oriented x3 Cognition (Neuro): normal cognition Extrem: General: Yes normal to inspection and Yes no pedal edema Results Labs CBC and Chem 7: 05/03/21 17:31 05/03/21 17:31 Labs: Laboratory Results - last 24 hr 05/03/21 05/03/21 05/03/21 16:41 17:31 17:31 MCV 91.3 MCH 30.2 MCHC 33.1 RDW 13.2 Plt Count 145 L D MPV 9.9 Immature Gran % (Auto) 0.8 H Neut % (Auto) 79.9 H Lymph % (Auto) 10.5 L Real % (Auto) 8.6 Eos % (Auto) 0.0 Baso % (Auto) 0.2 Lymph # (Auto) 0.6 L Real # (Auto) 0.5 Eos # (Auto) 0.0 Baso # (Auto) 0.0 Abs Immat Gran (auto) 0.04 H Absolute Neuts (auto) 4.2 Absolute Nucleated RBC 0.000 Nucleated RBC % (auto) 0.0 PT 11.8 INR 1.0 APTT 40.8 H D-Dimer 1881 O2 Saturation ABG pH at Pt Temp ABG pH (Temp Correct) ABG pCO2 at Pt Temp ABG pCO2 (Temp Corrct ABG pO2 at Pt Temp ABG pO2 (Temp Correct ABG HCO3 ABG Base Excess (Actual) Anion Gap Estim Creat Clear Calc Estimated GFR POC Glucose 133 H Random Glucose Lactic Acid Calcium Ferritin Total Bilirubin Lactate Dehydrogenase Troponin I High Sens C-Reactive Protein Procalcitonin 05/03/21 05/03/21 05/03/21 17:31 17:31 17:31 MCV MCH MCHC RDW Plt Count MPV Immature Gran % (Auto) Neut % (Auto) Lymph % (Auto) Real % (Auto) Eos % (Auto) Baso % (Auto) Lymph # (Auto) Real # (Auto) Eos # (Auto) Baso # (Auto) Abs Immat Gran (auto) Absolute Neuts (auto) Absolute Nucleated RBC Nucleated RBC % (auto) PT INR APTT D-Dimer O2 Saturation ABG pH at Pt Temp ABG pH (Temp Correct) ABG pCO2 at Pt Temp ABG pCO2 (Temp Corrct ABG pO2 at Pt Temp ABG pO2 (Temp Correct ABG HCO3 ABG Base Excess (Actual) Anion Gap 18 Estim Creat Clear Calc 49.0 Estimated GFR 47 POC Glucose Random Glucose 118 H Lactic Acid 2.0 Calcium 8.5 D Ferritin 325 H Total Bilirubin 0.4 Lactate Dehydrogenase 224 Troponin I High Sens 39.7 H* C-Reactive Protein 1.70 H Procalcitonin 05/03/21 05/03/21 05/03/21 17:31 17:31 20:37 MCV MCH MCHC RDW Plt Count MPV Immature Gran % (Auto) Neut % (Auto) Lymph % (Auto) Real % (Auto) Eos % (Auto) Baso % (Auto) Lymph # (Auto) Real # (Auto) Eos # (Auto) Baso # (Auto) Abs Immat Gran (auto) Absolute Neuts (auto) Absolute Nucleated RBC Nucleated RBC % (auto) PT INR APTT D-Dimer O2 Saturation 94.0 ABG pH at Pt Temp 7.40 ABG pH (Temp Correct) 7.38 ABG pCO2 at Pt Temp 26 L ABG pCO2 (Temp Corrct 27 L ABG pO2 at Pt Temp 82 L ABG pO2 (Temp Correct 89 ABG HCO3 16 L ABG Base Excess (Actual) -6.4 Anion Gap Estim Creat Clear Calc Estimated GFR POC Glucose Random Glucose Lactic Acid Calcium Ferritin Total Bilirubin Lactate Dehydrogenase Troponin I High Sens 48.3 H* C-Reactive Protein Procalcitonin 0.08 ECG Interpretation: First-degree AV block, right bundle-branch block, no significant change from previous EKG Imaging Radiologist's Impressions: Impressions Chest X-Ray 05/03/21 16:55 IMPRESSION: No acute pulmonary findings. Chest CTA 05/03/21 18:48 IMPRESSION: 1. No evidence of pulmonary embolus. 2. Moderate severe pulmonary emphysema. 3. Ill-defined foci groundglass attenuation in the lingula and lateral aspect of the right middle lobe which could correspond to multifocal bilateral pneumonia, but are not specific. No dense airspace consolidation. 4. Dependent atelectasis at the lung bases. VTE: negative Assessment and Plan (1) Pneumonia due to 2019 novel coronavirus: Status: Acute (2) Acute respiratory failure with hypoxia: Status: Acute (3) Weakness: Status: Acute (4) Fall: Qualifiers: Encounter type: initial encounter Qualified Code(s): W19.XXXA - Unspecified fall, initial encounter Status: Acute 75-year-old male who presents to the hospital with weakness and falls with a positive COVID test 4 days ago. # COVID-19 pneumonia - was found positive for days ago at outpatient setting, - has CT findings of multifocal pneumonia consistent with COVID-19 - mildly hypoxic - will start him on Decadron daily - O2 as required - monitor respiratory status # acute respiratory failure with hypoxia - secondary to COVID-19 - has no evidence of PE - will start him on Decadron as above - monitor respiratory status closely # weakness and fall - secondary to acute infection - no loss of consciousness - physical therapy consulted # hypothyroidism - continue levothyroxine # hypertension - stable - continue home lisinopril and amlodipine DVT prophylaxis: Heparin subQ Quality Stroke Does the patient have a stroke diagnosis?: No VTE Prior VTE?: No VTE Risk Level:: Medical - moderate - high VTE Device Contraindication: Treatment Not Indicated VTE Drug Contraindication: N/A - Med Ordered
[2021-05-04 07:20] LABS: MANUAL DIFF FLAG NO
[2021-05-04 07:25] LABS: Hematocrit 40.7 % (42-52); Hemoglobin 13.3 g/dl (14.0-18.0); Imm Gran Abs Auto 0.02 X10*3/uL (0.00-0.03); Imm Gran Pct Auto 0.6 % (0.0-0.4); Lymphocytes Absolute Auto 0.6 X10*3/uL (1.2-4.9); Lymphocytes Percent Auto 15.6 % (20-40); Mean Corpuscular HGB Conc 32.7 g/dl (31.0-36.0); Mean Corpuscular Hemoglobin 30.5 pg (27.0-33.0); Mean Corpuscular Volume 93.3 fL (80-98); Mean Platelet Volume 9.7 fL (9.4-12.4); Monocytes Absolute Auto 0.3 X10*3/uL (0.1-1.2); Monocytes Percent Auto 8.5 % (2-11); Neutrophils Absolute Auto 2.7 X10*3/uL (2.0-8.3); Neutrophils Percent Auto 75.3 % (45-73); Platelet Count 158 X10*3/uL (160-400); Red Blood Count 4.36 X10*6/uL (4.60-5.80); Red Cell Distribution Width 13.3 % (11.0-16.0); White Blood Count 3.5 X10*3/uL (4.8-10.8)
[2021-05-04 07:59] LABS: Anion Gap 14 (12-20); Blood Urea Nitrogen 23 mg/dL (9-16); Calcium 7.9 mg/dL (8.4-10.2); Carbon Dioxide 19 mmol/L (22-29); Chloride 105 mmol/L (96-108); Estimated Glomerular Filt Rate > 60; Glucose Random 131 mg/dL (60-115); Potassium 5.4 mmol/L (3.3-5.1); Sodium 133 mmol/L (135-145)
[2021-05-04] MEDS: dexAMETHasone sod phosphate 4 MG/ML VIAL 6 MG IVPUSH (08:19)
[2021-05-04] MEDS: Atorvastatin Calcium 80 MG TABLET PO (08:20)
[2021-05-04] MEDS: amLODIPine Besylate 10 MG TABLET PO (08:20)
[2021-05-04] MEDS: Levothyroxine Sodium 125 MCG TABLET PO (08:21)
[2021-05-04] MEDS: Sodium Polystyrene Sulfon/Sorb 15 GM/60 ML ORAL.SUSP 30 GM PO (09:05)
[2021-05-04 10:06] LABS: Glucose, Whole Blood 137 mg/dL (60-115)
[2021-05-04 10:33] LABS: Glucose, Whole Blood 136 mg/dL (60-115)
[2021-05-04] MEDS: Heparin Sodium,Porcine 5,000 UNIT/ML VIAL 5000 UNIT SUBCUT (10:45)
--- NOTE | 2021-05-04 13:15 | P.PNIM_ITS ---
Subjective Subjective Date of Service: 05/04/21 Interval History: the patient was seen and evaluated this morning Laying in bed, feels comfortable On 2 L of oxygen, saturation around 90s Denies any fever, chills or shortness of breath No reported other overnight events. Systemic review: No fever, chills or weakness No chest pain, palpitation Complaining of cough and mild dyspnea on exertion No abdominal pain, nausea or vomiting No urinary symptoms No any rash or wounds Physical Exam Vital Signs: Vital Signs: Last Vital Signs Temp 97.6 F 05/04/21 10:36 Pulse 73 05/04/21 10:36 Resp 18 05/04/21 10:36 BP 148/66 H 05/04/21 10:36 Pulse Ox 96 05/04/21 10:36 Body Mass Index 29.5 Const: Other: Constitutional : Alert, oriented, not in distress Neck : Normal inspection, Supple Cardiovascular : RRR, S1 S2, no lower extremity edema Respiratory : Decreased bilateral air entry, no crackles, wheezes or rhonchi Gastrointestinal: soft, lax, Normal bowel sounds, Non tender Skin : Warm/Dry, No rash Neurological : Alert & oriented x3, No focal deficit Objective Data Current Medications Generic Name Dose Route Start Last Admin Trade Name Freq PRN Reason Stop Dose Admin Acetaminophen 650 mg 05/03/21 22:28 Acetaminophen 325 Mg Tablet PO Q6H PRN Pain, Mild (Pain Scale 1-3) Amlodipine Besylate 10 mg 05/04/21 09:00 05/04/21 08:20 Amlodipine Besylate 10 Mg Tablet PO 10 mg DAILY [facility] Administration Protocol Atorvastatin Calcium 80 mg 05/04/21 09:00 05/04/21 08:20 Atorvastatin Calcium 80 Mg Tablet PO 80 mg DAILY [facility] Administration Dexamethasone Sodium Phosphate 6 mg 05/04/21 09:00 05/04/21 08:19 Dexamethasone Sod Phosphate 4 Mg/Ml Vial IVPUSH 6 mg DAILY [facility] Administration Docusate Sodium 100 mg 05/03/21 22:28 Docusate Sodium 100 Mg Capsule PO DAILY PRN Constipation Heparin Sodium (Porcine) 5,000 unit 05/03/21 23:00 05/04/21 10:45 Heparin Sodium,Porcine 5,000 Unit/Ml Vial SUBCUT 5,000 unit Q12H [facility] Administration Levothyroxine Sodium 125 mcg 05/04/21 09:00 05/04/21 08:21 Levothyroxine Sodium 125 Mcg Tablet PO 125 mcg DAILY [facility] Administration Lisinopril 40 mg 05/04/21 09:00 05/04/21 08:20 Lisinopril 40 Mg Tablet PO 40 mg DAILY [facility] Administration Protocol Omeprazole 20 mg 05/04/21 06:30 05/04/21 05:55 Omeprazole 20 Mg Capsule. PO 20 mg BID@2830,8850 [facility] Administration Ondansetron HCl 4 mg 05/03/21 22:28 Ondansetron Hcl 4 Mg/2 Ml Vial IVPUSH Q8H PRN Nausea and Vomiting Sodium Chloride 3 ml 05/04/21 00:00 05/04/21 08:23 0.9 % Sodium Chloride Flush 3 Ml Syringe IVFLUSH 3 ml QSHIFT [facility] Administration Labs CBC & Chem 7: 05/04/21 05:52 05/04/21 05:52 Labs: Laboratory Results - last 24 hr 05/03/21 05/03/21 05/03/21 16:41 17:31 17:31 MCV 91.3 MCH 30.2 MCHC 33.1 RDW 13.2 Plt Count 145 L D MPV 9.9 Immature Gran % (Auto) 0.8 H Neut % (Auto) 79.9 H Lymph % (Auto) 10.5 L Garfield % (Auto) 8.6 Eos % (Auto) 0.0 Baso % (Auto) 0.2 Lymph # (Auto) 0.6 L Garfield # (Auto) 0.5 Eos # (Auto) 0.0 Baso # (Auto) 0.0 Abs Immat Gran (auto) 0.04 H Absolute Neuts (auto) 4.2 Absolute Nucleated RBC 0.000 Nucleated RBC % (auto) 0.0 PT 11.8 INR 1.0 APTT 40.8 H D-Dimer 1881 O2 Saturation ABG pH at Pt Temp ABG pH (Temp Correct) ABG pCO2 at Pt Temp ABG pCO2 (Temp Corrct ABG pO2 at Pt Temp ABG pO2 (Temp Correct ABG HCO3 ABG Base Excess (Actual) Anion Gap Estim Creat Clear Calc Estimated GFR POC Glucose 133 H Random Glucose Lactic Acid Calcium Ferritin Total Bilirubin Lactate Dehydrogenase Troponin I High Sens C-Reactive Protein Procalcitonin 05/03/21 05/03/21 05/03/21 17:31 17:31 17:31 MCV MCH MCHC RDW Plt Count MPV Immature Gran % (Auto) Neut % (Auto) Lymph % (Auto) Garfield % (Auto) Eos % (Auto) Baso % (Auto) Lymph # (Auto) Garfield # (Auto) Eos # (Auto) Baso # (Auto) Abs Immat Gran (auto) Absolute Neuts (auto) Absolute Nucleated RBC Nucleated RBC % (auto) PT INR APTT D-Dimer O2 Saturation ABG pH at Pt Temp ABG pH (Temp Correct) ABG pCO2 at Pt Temp ABG pCO2 (Temp Corrct ABG pO2 at Pt Temp ABG pO2 (Temp Correct ABG HCO3 ABG Base Excess (Actual) Anion Gap 18 Estim Creat Clear Calc 49.0 Estimated GFR 47 POC Glucose Random Glucose 118 H Lactic Acid 2.0 Calcium 8.5 D Ferritin 325 H Total Bilirubin 0.4 Lactate Dehydrogenase 224 Troponin I High Sens 39.7 H* C-Reactive Protein 1.70 H Procalcitonin 05/03/21 05/03/21 05/03/21 17:31 17:31 20:37 MCV MCH MCHC RDW Plt Count MPV Immature Gran % (Auto) Neut % (Auto) Lymph % (Auto) Garfield % (Auto) Eos % (Auto) Baso % (Auto) Lymph # (Auto) Garfield # (Auto) Eos # (Auto) Baso # (Auto) Abs Immat Gran (auto) Absolute Neuts (auto) Absolute Nucleated RBC Nucleated RBC % (auto) PT INR APTT D-Dimer O2 Saturation 94.0 ABG pH at Pt Temp 7.40 ABG pH (Temp Correct) 7.38 ABG pCO2 at Pt Temp 26 L ABG pCO2 (Temp Corrct 27 L ABG pO2 at Pt Temp 82 L ABG pO2 (Temp Correct 89 ABG HCO3 16 L ABG Base Excess (Actual) -6.4 Anion Gap Estim Creat Clear Calc Estimated GFR POC Glucose Random Glucose Lactic Acid Calcium Ferritin Total Bilirubin Lactate Dehydrogenase Troponin I High Sens 48.3 H* C-Reactive Protein Procalcitonin 0.08 05/04/21 05/04/21 05/04/21 05:52 05:52 07:58 MCV 93.3 MCH 30.5 MCHC 32.7 RDW 13.3 Plt Count 158 L MPV 9.7 Immature Gran % (Auto) 0.6 H Neut % (Auto) 75.3 H Lymph % (Auto) 15.6 L Garfield % (Auto) 8.5 Eos % (Auto) 0.0 Baso % (Auto) 0.0 Lymph # (Auto) 0.6 L Garfield # (Auto) 0.3 Eos # (Auto) 0.0 Baso # (Auto) 0.0 Abs Immat Gran (auto) 0.02 Absolute Neuts (auto) 2.7 Absolute Nucleated RBC 0.000 Nucleated RBC % (auto) 0.0 PT INR APTT D-Dimer O2 Saturation ABG pH at Pt Temp ABG pH (Temp Correct) ABG pCO2 at Pt Temp ABG pCO2 (Temp Corrct ABG pO2 at Pt Temp ABG pO2 (Temp Correct ABG HCO3 ABG Base Excess (Actual) Anion Gap 14 Estim Creat Clear Calc 67.0 Estimated GFR > 60 POC Glucose 137 H Random Glucose 131 H Lactic Acid Calcium 7.9 L D Ferritin Total Bilirubin Lactate Dehydrogenase Troponin I High Sens C-Reactive Protein Procalcitonin 05/04/21 10:29 MCV MCH MCHC RDW Plt Count MPV Immature Gran % (Auto) Neut % (Auto) Lymph % (Auto) Garfield % (Auto) Eos % (Auto) Baso % (Auto) Lymph # (Auto) Garfield # (Auto) Eos # (Auto) Baso # (Auto) Abs Immat Gran (auto) Absolute Neuts (auto) Absolute Nucleated RBC Nucleated RBC % (auto) PT INR APTT D-Dimer O2 Saturation ABG pH at Pt Temp ABG pH (Temp Correct) ABG pCO2 at Pt Temp ABG pCO2 (Temp Corrct ABG pO2 at Pt Temp ABG pO2 (Temp Correct ABG HCO3 ABG Base Excess (Actual) Anion Gap Estim Creat Clear Calc Estimated GFR POC Glucose 136 H Random Glucose Lactic Acid Calcium Ferritin Total Bilirubin Lactate Dehydrogenase Troponin I High Sens C-Reactive Protein Procalcitonin Assessment and Plan (1) Acute respiratory failure with hypoxia: Status: Acute (2) Pneumonia due to 2019 novel coronavirus: Status: Acute Assessment and Plan: 75-year-old male who presents to the hospital with weakness and falls with a positive COVID test 4 days ago. # acute respiratory failure with hypoxia # COVID-19 pneumonia Stable, on oxygen supplement CT findings of multifocal pneumonia consistent with COVID-19 mildly hypoxic Day to IV Decadron daily Wean oxygen down as tolerated # weakness and fall secondary to acute infection PT evaluation # hypothyroidism continue levothyroxine # hypertension stable continue home lisinopril and amlodipine DVT prophylaxis Heparin subQ Quality Stroke Does the patient have a stroke diagnosis?: No VTE Prior VTE?: No VTE Risk Level:: Medical - moderate - high VTE Device Contraindication: Treatment Not Indicated VTE Drug Contraindication: N/A - Med Ordered
[2021-05-04 15:58] LABS: Glucose, Whole Blood 143 mg/dL (60-115)
[2021-05-04 20:13] LABS: Glucose, Whole Blood 117 mg/dL (60-115)
[2021-05-05] VITALS (10 sets, daily range): BP systolic 133–162; BP diastolic 66–74; PULSE 82–106; RESP 14–20; TEMP 36.2–37.4; O2SAT 87–96
--- NOTE | 2021-05-05 | ECG_ITS ---
Test Reason : a flutter?rhythm Blood Pressure : / mmHG Vent. Rate : 100 BPM Atrial Rate : 100 BPM P-R Int : 218 ms QRS Dur : 134 ms QT Int : 366 ms P-R-T Axes : 032 -21 065 degrees QTc Int : 472 ms Sinus rhythm with 1st degree A-V block Right bundle branch block Left ventricular hypertrophy with repolarization abnormality Inferior infarct , age undetermined Anterolateral infarct , age undetermined Abnormal ECG When compared to the previous EKG of No significant changes seen Referred By: Jeaneth Iglesias Electronically Signed By:Alan Patel
[2021-05-05] MEDS: Heparin Sodium,Porcine 5,000 UNIT/ML VIAL 5000 UNIT SUBCUT ×3 (00:01→22:46)
[2021-05-05] MEDS: LORazepam 1 MG TABLET PO (00:01)
[2021-05-05] MEDS: 0.9 % Sodium Chloride Flush 3 ML SYRINGE IVFLUSH ×4 (00:02→22:46)
[2021-05-05] MEDS: Omeprazole 20 MG CAPSULE.DR PO ×2 (05:51→16:03)
[2021-05-05 08:43] LABS: Glucose, Whole Blood 123 mg/dL (60-115)
[2021-05-05 09:33] LABS: Hematocrit 40.2 % (42-52); Hemoglobin 13.4 g/dl (14.0-18.0); Mean Corpuscular HGB Conc 33.3 g/dl (31.0-36.0); Mean Corpuscular Hemoglobin 30.2 pg (27.0-33.0); Mean Corpuscular Volume 90.7 fL (80-98); Mean Platelet Volume 9.7 fL (9.4-12.4); Platelet Count 164 X10*3/uL (160-400); Red Blood Count 4.43 X10*6/uL (4.60-5.80); Red Cell Distribution Width 13.2 % (11.0-16.0); White Blood Count 5.2 X10*3/uL (4.8-10.8)
[2021-05-05 09:59] LABS: Anion Gap 15 (12-20); Blood Urea Nitrogen 20 mg/dL (9-16); Calcium 8.1 mg/dL (8.4-10.2); Carbon Dioxide 21 mmol/L (22-29); Chloride 100 mmol/L (96-108); Creatinine Clr Calc Pharmacy 68.3; Estimated Glomerular Filt Rate > 60; Glucose Random 117 mg/dL (60-115); Potassium 3.8 mmol/L (3.3-5.1); Sodium 132 mmol/L (135-145)
[2021-05-05] MEDS: dexAMETHasone sod phosphate 4 MG/ML VIAL 6 MG IVPUSH (09:59)
[2021-05-05] MEDS: Atorvastatin Calcium 80 MG TABLET PO (10:00)
[2021-05-05] MEDS: amLODIPine Besylate 10 MG TABLET PO (10:00)
[2021-05-05] MEDS: Levothyroxine Sodium 125 MCG TABLET PO (10:01)
[2021-05-05 11:59] LABS: Glucose, Whole Blood 123 mg/dL (60-115)
--- NOTE | 2021-05-05 14:01 | HO.PM.IMPN ---
Subjective Subjective Date of Service: 05/05/21 Interval History: the patient was seen and evaluated this morning Laying in bed, feels comfortable Increase oxygen supplement to 5 L Denies any fever, chills or shortness of breath No reported other overnight events. Systemic review: No fever, chills or weakness No chest pain, palpitation Complaining of cough and mild dyspnea on exertion No abdominal pain, nausea or vomiting No urinary symptoms No any rash or wounds Physical Exam Vital Signs: Vital Signs: Last Vital Signs Temp 98.9 F 05/05/21 11:50 Pulse 106 H 05/05/21 11:50 Resp 20 05/05/21 11:50 BP 134/66 05/05/21 11:50 Pulse Ox 94 05/05/21 11:50 Body Mass Index 29.5 Const: Other: Constitutional : Alert, oriented, not in distress Neck : Normal inspection, Supple Cardiovascular : RRR, S1 S2, no lower extremity edema Respiratory : Decreased bilateral air entry, no crackles, wheezes or rhonchi, on 5 L of oxygen Gastrointestinal: soft, lax, Normal bowel sounds, Non tender Skin : Warm/Dry, No rash Neurological : Alert & oriented x3, No focal deficit Objective Data Current Medications Generic Name Dose Route Start Last Admin Trade Name Freq PRN Reason Stop Dose Admin Acetaminophen 650 mg 05/03/21 22:28 Acetaminophen 325 Mg Tablet PO Q6H PRN Pain, Mild (Pain Scale 1-3) Amlodipine Besylate 10 mg 05/04/21 09:00 05/05/21 10:00 Amlodipine Besylate 10 Mg Tablet PO 10 mg DAILY [facility] Administration Protocol Atorvastatin Calcium 80 mg 05/04/21 09:00 05/05/21 10:00 Atorvastatin Calcium 80 Mg Tablet PO 80 mg DAILY [facility] Administration Dexamethasone Sodium Phosphate 6 mg 05/04/21 09:00 05/05/21 09:59 Dexamethasone Sod Phosphate 4 Mg/Ml Vial IVPUSH 6 mg DAILY [facility] Administration Docusate Sodium 100 mg 05/03/21 22:28 Docusate Sodium 100 Mg Capsule PO DAILY PRN Constipation Heparin Sodium (Porcine) 5,000 unit 05/03/21 23:00 05/05/21 10:00 Heparin Sodium,Porcine 5,000 Unit/Ml Vial SUBCUT 5,000 unit Q12H [facility] Administration Levothyroxine Sodium 125 mcg 05/04/21 09:00 05/05/21 10:01 Levothyroxine Sodium 125 Mcg Tablet PO 125 mcg DAILY [facility] Administration Lisinopril 40 mg 05/04/21 09:00 05/05/21 10:00 Lisinopril 40 Mg Tablet PO 40 mg DAILY [facility] Administration Protocol Omeprazole 20 mg 05/04/21 06:30 05/05/21 05:51 Omeprazole 20 Mg Capsule. PO 20 mg BID@1067,4810 [facility] Administration Ondansetron HCl 4 mg 05/03/21 22:28 Ondansetron Hcl 4 Mg/2 Ml Vial IVPUSH Q8H PRN Nausea and Vomiting Sodium Chloride 3 ml 05/04/21 00:00 05/05/21 10:01 0.9 % Sodium Chloride Flush 3 Ml Syringe IVFLUSH 3 ml QSHIFT [facility] Administration Labs CBC & Chem 7: 05/05/21 08:57 05/05/21 08:57 Labs: Laboratory Results - last 24 hr 05/04/21 05/04/21 05/05/21 15:54 20:08 08:39 MCV MCH MCHC RDW Plt Count MPV Absolute Nucleated RBC Nucleated RBC % (auto) Anion Gap Estim Creat Clear Calc Estimated GFR POC Glucose 143 H 117 H 123 H Random Glucose Calcium 05/05/21 05/05/21 05/05/21 08:57 08:57 11:43 MCV 90.7 MCH 30.2 MCHC 33.3 RDW 13.2 Plt Count 164 MPV 9.7 Absolute Nucleated RBC 0.000 Nucleated RBC % (auto) 0.0 Anion Gap 15 Estim Creat Clear Calc 68.3 Estimated GFR > 60 POC Glucose 123 H Random Glucose 117 H Calcium 8.1 L Microbiology Microbiology Results: Microbiology 05/03/21 17:30 Blood Culture - Preliminary Blood - Venous No growth after 24 hours. 05/03/21 17:30 Blood Culture - Preliminary Blood - Venous No growth after 24 hours. Assessment and Plan (1) Acute respiratory failure with hypoxia: Status: Acute (2) Pneumonia due to 2019 novel coronavirus: Status: Acute Assessment and Plan: 75-year-old male who presents to the hospital with weakness and falls with a positive COVID test 4 days ago. # acute respiratory failure with hypoxia # COVID-19 pneumonia Had a week of symptoms before presenting to the hospital, does not qualify for remdesivir CT findings of multifocal pneumonia consistent with COVID-19 Increased oxygen requirement to 5 L Day 3 IV Decadron Wean oxygen down as tolerated # weakness and fall secondary to acute infection PT evaluation # hypothyroidism continue levothyroxine # hypertension stable continue home lisinopril and amlodipine DVT prophylaxis Heparin subQ Quality Stroke Does the patient have a stroke diagnosis?: No VTE Prior VTE?: No VTE Risk Level:: Medical - moderate - high VTE Device Contraindication: Treatment Not Indicated VTE Drug Contraindication: N/A - Med Ordered
--- NOTE | 2021-05-05 15:08 | MHC.CM.PN ---
CM CONTACTED PTS , RODGER ([phone]) PT IN IN ISOLATION DUE TO COVID-19 STATUS. RODGER REPORTS SHE AND THE PT LIVE WITH THEIR SON, [id number] AND TWO GRANDSONS. SHE REPORTS THE PT IS FULLY INDEPENDENT AT BASELINE, HAS NO SERVICES AND NO DME. RODGER DOES NOT THINK THE PT HAS A HCP AND SHE CONFIRMS HIS PCP IS DEANN WERNER. IMM DELIVERED AND A COPY WILL BE MAILED TO RODGER. CURRENT DC PLAN IS HOME VS HOME WITH [facility] TO TRANSPORT
[2021-05-05 16:44] LABS: Glucose, Whole Blood 123 mg/dL (60-115)
[2021-05-05 20:42] LABS: Glucose, Whole Blood 126 mg/dL (60-115)
[2021-05-05] MEDS: LORazepam 0.5 MG TABLET PO (22:46)
[2021-05-06] VITALS (7 sets, daily range): BP systolic 115–151; BP diastolic 59–75; PULSE 60–101; RESP 18–20; TEMP 36.2–37.6; O2SAT 88–92
[2021-05-06] MEDS: Omeprazole 20 MG CAPSULE.DR PO ×2 (05:53→16:56)
[2021-05-06 06:40] LABS: Prothrombin Time 11.9 SEC (9.9-13.0)
[2021-05-06 06:43] LABS: Hematocrit 43.2 % (42-52); Hemoglobin 14.1 g/dl (14.0-18.0); Mean Corpuscular HGB Conc 32.6 g/dl (31.0-36.0); Mean Corpuscular Hemoglobin 30.1 pg (27.0-33.0); Mean Corpuscular Volume 92.3 fL (80-98); Mean Platelet Volume 10.9 fL (9.4-12.4); Platelet Count 148 X10*3/uL (160-400); Red Blood Count 4.68 X10*6/uL (4.60-5.80); Red Cell Distribution Width 13.3 % (11.0-16.0); White Blood Count 5.7 X10*3/uL (4.8-10.8)
[2021-05-06 07:38] LABS: Glucose, Whole Blood 109 mg/dL (60-115)
[2021-05-06] MEDS: Atorvastatin Calcium 80 MG TABLET PO (08:49)
[2021-05-06] MEDS: Zinc Sulfate 220 MG CAPSULE PO (08:49)
[2021-05-06] MEDS: Levothyroxine Sodium 125 MCG TABLET PO (08:49)
[2021-05-06] MEDS: Ascorbic Acid 500 MG TABLET 1000 MG PO (08:49)
[2021-05-06] MEDS: amLODIPine Besylate 10 MG TABLET PO (08:50)
[2021-05-06] MEDS: dexAMETHasone sod phosphate 4 MG/ML VIAL 6 MG IVPUSH (08:50)
[2021-05-06] MEDS: 0.9 % Sodium Chloride Flush 3 ML SYRINGE IVFLUSH ×2 (08:51→15:02)
[2021-05-06 09:23] LABS: Anion Gap 18 (12-20); Blood Urea Nitrogen 21 mg/dL (9-16); Calcium 8.1 mg/dL (8.4-10.2); Carbon Dioxide 21 mmol/L (22-29); Chloride 100 mmol/L (96-108); Creatinine Clr Calc Pharmacy 79.8; Estimated Glomerular Filt Rate > 60; Glucose Random 99 mg/dL (60-115); Potassium 4.3 mmol/L (3.3-5.1); Sodium 135 mmol/L (135-145)
[2021-05-06 09:24] LABS: Alanine Aminotransferase 21 U/L (0-40); Aspartate Amino Transferase 41 U/L (5-37); Bilirubin Direct 0.3 mg/dL (0.0-0.5); Bilirubin Total 0.5 mg/dL (0.0-1.0)
[2021-05-06 09:25] LABS: Albumin Level 3.9 g/dL (3.5-5.0); Alkaline Phosphatase 62 U/L (39-117); C Reactive Protein 6.18 mg/dL (< or = 0.50); Total Protein 7.2 g/dL (6.5-8.0)
[2021-05-06 09:37] LABS: Lactate Dehydrogenase 396 U/L (118-273)
[2021-05-06] MEDS: Heparin Sodium,Porcine 5,000 UNIT/ML VIAL 5000 UNIT SUBCUT (10:24)
[2021-05-06 11:42] LABS: Glucose, Whole Blood 136 mg/dL (60-115)
[2021-05-06] MEDS: LORazepam 0.5 MG TABLET PO (12:20)
[2021-05-06 15:58] LABS: Glucose, Whole Blood 129 mg/dL (60-115)
--- NOTE | 2021-05-06 16:21 | HO.PM.IMPN ---
Subjective Subjective Date of Service: 05/06/21 Interval History: The patient was seen and evaluated this morning Laying in bed, feels comfortable oxygen supplement to 5-6 L Denies any fever, chills or shortness of breath No reported other overnight events Systemic review: No fever, chills or weakness No chest pain, palpitation Complaining of cough and mild dyspnea on exertion No abdominal pain, nausea or vomiting No urinary symptoms No any rash or wounds Physical Exam Vital Signs: Vital Signs: Last Vital Signs Temp 97.2 F 05/06/21 15:19 Pulse 60 05/06/21 15:19 Resp 20 05/06/21 15:19 BP 115/59 L 05/06/21 15:19 Pulse Ox 92 05/06/21 15:19 Body Mass Index 29.5 Const: Other: Constitutional : Alert, oriented, not in distress Neck : Normal inspection, Supple Cardiovascular : RRR, S1 S2, no lower extremity edema Respiratory : Decreased bilateral air entry, no crackles, wheezes or rhonchi, on 5 L of oxygen Gastrointestinal: soft, lax, Normal bowel sounds, Non tender Skin : Warm/Dry, No rash Neurological : Alert & oriented x3, No focal deficit Objective Data Current Medications Generic Name Dose Route Start Last Admin Trade Name Freq PRN Reason Stop Dose Admin Acetaminophen 650 mg 05/03/21 22:28 Acetaminophen 325 Mg Tablet PO Q6H PRN Pain, Mild (Pain Scale 1-3) Amlodipine Besylate 10 mg 05/04/21 09:00 05/06/21 08:50 Amlodipine Besylate 10 Mg Tablet PO 10 mg DAILY CHANO Administration Protocol Ascorbic Acid 1,000 mg 05/06/21 09:00 05/06/21 08:49 Ascorbic Acid 500 Mg Tablet PO 1,000 mg DAILY CHANO Administration Atorvastatin Calcium 80 mg 05/04/21 09:00 05/06/21 08:49 Atorvastatin Calcium 80 Mg Tablet PO 80 mg DAILY CHANO Administration Dexamethasone Sodium Phosphate 6 mg 05/04/21 09:00 05/06/21 08:50 Dexamethasone Sod Phosphate 4 Mg/Ml Vial IVPUSH 6 mg DAILY CHANO Administration Docusate Sodium 100 mg 05/03/21 22:28 Docusate Sodium 100 Mg Capsule PO DAILY PRN Constipation Heparin Sodium (Porcine) 5,000 unit 05/03/21 23:00 05/06/21 10:24 Heparin Sodium,Porcine 5,000 Unit/Ml Vial SUBCUT 5,000 unit Q12H CHANO Administration Levothyroxine Sodium 125 mcg 05/04/21 09:00 05/06/21 08:49 Levothyroxine Sodium 125 Mcg Tablet PO 125 mcg DAILY CHANO Administration Lisinopril 40 mg 05/04/21 09:00 05/06/21 08:50 Lisinopril 40 Mg Tablet PO 40 mg DAILY CHANO Administration Protocol Lorazepam 0.5 mg 05/06/21 11:04 05/06/21 12:20 Lorazepam 0.5 Mg Tablet PO 0.5 mg DAILY PRN Administration Insomnia Omeprazole 20 mg 05/04/21 06:30 05/06/21 05:53 Omeprazole 20 Mg Capsule. PO 20 mg BID@8030,1150 CHANO Administration Ondansetron HCl 4 mg 05/03/21 22:28 Ondansetron Hcl 4 Mg/2 Ml Vial IVPUSH Q8H PRN Nausea and Vomiting Quetiapine Fumarate 25 mg 05/06/21 11:04 Quetiapine Fumarate 25 Mg Tablet PO BEDTIME PRN anxiety/restlessness Sodium Chloride 3 ml 05/04/21 00:00 05/06/21 15:02 0.9 % Sodium Chloride Flush 3 Ml Syringe IVFLUSH 3 ml QSHIFT CHANO Administration Zinc Sulfate 220 mg 05/06/21 09:00 05/06/21 08:49 Zinc Sulfate 220 Mg Capsule PO 220 mg DAILY CHANO Administration Labs CBC & Chem 7: 05/06/21 06:01 05/06/21 07:59 Labs: Laboratory Results - last 24 hr 05/05/21 05/05/21 05/06/21 16:40 20:36 06:01 MCV 92.3 MCH 30.1 MCHC 32.6 RDW 13.3 Plt Count 148 L MPV 10.9 Absolute Nucleated RBC 0.000 Nucleated RBC % (auto) 0.0 PT INR Anion Gap Estim Creat Clear Calc Estimated GFR POC Glucose 123 H 126 H Random Glucose Calcium Total Bilirubin Direct Bilirubin AST ALT Alkaline Phosphatase Lactate Dehydrogenase C-Reactive Protein Total Protein Albumin 05/06/21 05/06/21 05/06/21 06:01 07:26 07:59 MCV MCH MCHC RDW Plt Count MPV Absolute Nucleated RBC Nucleated RBC % (auto) PT 11.9 INR 1.0 Anion Gap 18 Estim Creat Clear Calc 79.8 Estimated GFR > 60 POC Glucose 109 Random Glucose 99 Calcium 8.1 L Total Bilirubin Direct Bilirubin AST ALT Alkaline Phosphatase Lactate Dehydrogenase C-Reactive Protein Total Protein Albumin 05/06/21 05/06/21 05/06/21 07:59 11:11 15:55 MCV MCH MCHC RDW Plt Count MPV Absolute Nucleated RBC Nucleated RBC % (auto) PT INR Anion Gap Estim Creat Clear Calc Estimated GFR POC Glucose 136 H 129 H Random Glucose Calcium Total Bilirubin 0.5 Direct Bilirubin 0.3 AST 41 H D ALT 21 Alkaline Phosphatase 62 D Lactate Dehydrogenase 396 H C-Reactive Protein 6.18 H Total Protein 7.2 Albumin 3.9 Microbiology Microbiology Results: Microbiology 05/03/21 17:30 Blood Culture - Preliminary Blood - Venous No growth after 48 hours. 05/03/21 17:30 Blood Culture - Preliminary Blood - Venous No growth after 48 hours. Assessment and Plan (1) Acute respiratory failure with hypoxia: Status: Acute (2) Pneumonia due to 2019 novel coronavirus: Status: Acute Assessment and Plan: 75-year-old male who presents to the hospital with weakness and falls with a positive COVID test 4 days ago. # acute respiratory failure with hypoxia # COVID-19 pneumonia Had a week of symptoms before presenting to the hospital, does not qualify for remdesivir CT findings of multifocal pneumonia consistent with COVID-19 Increased oxygen requirement to 5-6 L Day 4 IV Decadron Wean oxygen down as tolerated # weakness and fall secondary to acute infection PT evaluation # hypothyroidism continue levothyroxine # hypertension stable continue home lisinopril and amlodipine DVT prophylaxis Heparin subQ Quality Stroke Does the patient have a stroke diagnosis?: No VTE Prior VTE?: No VTE Risk Level:: Medical - moderate - high VTE Device Contraindication: Treatment Not Indicated VTE Drug Contraindication: N/A - Med Ordered
[2021-05-06 20:02] LABS: Glucose, Whole Blood 153 mg/dL (60-115)
[2021-05-07] VITALS (8 sets, daily range): BP systolic 108–162; BP diastolic 47–77; PULSE 86–99; RESP 19–20; TEMP 36.1–37.3; O2SAT 85–92
[2021-05-07] MEDS: Omeprazole 20 MG CAPSULE.DR PO ×2 (05:37→16:25)
[2021-05-07] MEDS: Zinc Sulfate 220 MG CAPSULE PO (07:20)
[2021-05-07] MEDS: amLODIPine Besylate 10 MG TABLET PO (07:20)
[2021-05-07] MEDS: Atorvastatin Calcium 80 MG TABLET PO (07:20)
[2021-05-07] MEDS: Levothyroxine Sodium 125 MCG TABLET PO (07:20)
[2021-05-07] MEDS: Ascorbic Acid 500 MG TABLET 1000 MG PO (07:20)
[2021-05-07] MEDS: dexAMETHasone sod phosphate 4 MG/ML VIAL 6 MG IVPUSH (07:21)
[2021-05-07] MEDS: 0.9 % Sodium Chloride Flush 3 ML SYRINGE IVFLUSH ×2 (07:21→16:25)
[2021-05-07] MEDS: LORazepam 0.5 MG TABLET PO (08:12)
[2021-05-07] MEDS: guaiFENesin DM 100/10/5 ML 5 ML SYRUP PO (08:12)
[2021-05-07] MEDS: Heparin Sodium,Porcine 5,000 UNIT/ML VIAL 5000 UNIT SUBCUT ×2 (11:15→22:07)
--- NOTE | 2021-05-07 13:49 | HO.PM.IMPN ---
Subjective Subjective Date of Service: 05/07/21 Interval History: sob Cardiovascular Cardiovascular: Reports no additional cardiovascular complaints Gastrointestinal Gastrointestinal: Reports no additional gastrointestinal complaints Physical Exam Vital Signs: Vital Signs: Last Vital Signs Temp 97.8 F 05/07/21 10:59 Pulse 95 05/07/21 10:59 Resp 20 05/07/21 10:59 BP 108/47 L 05/07/21 10:59 Pulse Ox 92 05/07/21 11:18 Body Mass Index 29.5 General: AO X 3, sob Resp: Crackles CVS: S1,S2,RRR GI: soft, non tender, non distended Neuro: motor grossly intact Psych: appropriate affect Objective Data Current Medications Generic Name Dose Route Start Last Admin Trade Name Freq PRN Reason Stop Dose Admin Acetaminophen 650 mg 05/03/21 22:28 Acetaminophen 325 Mg Tablet PO Q6H PRN Pain, Mild (Pain Scale 1-3) Amlodipine Besylate 10 mg 05/04/21 09:00 05/07/21 07:20 Amlodipine Besylate 10 Mg Tablet PO 10 mg DAILY CHANO Administration Protocol Ascorbic Acid 1,000 mg 05/06/21 09:00 05/07/21 07:20 Ascorbic Acid 500 Mg Tablet PO 1,000 mg DAILY CHANO Administration Atorvastatin Calcium 80 mg 05/04/21 09:00 05/07/21 07:20 Atorvastatin Calcium 80 Mg Tablet PO 80 mg DAILY CHANO Administration Dexamethasone Sodium Phosphate 6 mg 05/04/21 09:00 05/07/21 07:21 Dexamethasone Sod Phosphate 4 Mg/Ml Vial IVPUSH 6 mg DAILY CHANO Administration Docusate Sodium 100 mg 05/03/21 22:28 Docusate Sodium 100 Mg Capsule PO DAILY PRN Constipation Guaifenesin/Dextromethorphan 5 ml 05/07/21 07:44 05/07/21 08:12 Guaifenesin Dm 100/10/5 Ml 5 Ml Syrup PO 5 ml Q4H PRN Administration cough Heparin Sodium (Porcine) 5,000 unit 05/03/21 23:00 05/07/21 11:15 Heparin Sodium,Porcine 5,000 Unit/Ml Vial SUBCUT 5,000 unit Q12H CHANO Administration Levothyroxine Sodium 125 mcg 05/04/21 09:00 05/07/21 07:20 Levothyroxine Sodium 125 Mcg Tablet PO 125 mcg DAILY CHANO Administration Lisinopril 40 mg 05/04/21 09:00 05/07/21 07:20 Lisinopril 40 Mg Tablet PO 40 mg DAILY CHANO Administration Protocol Lorazepam 0.5 mg 05/06/21 11:04 05/07/21 08:12 Lorazepam 0.5 Mg Tablet PO 0.5 mg DAILY PRN Administration Insomnia Omeprazole 20 mg 05/04/21 06:30 05/07/21 05:37 Omeprazole 20 Mg Capsule.Dr PO 20 mg BID@0630,1630 CHANO Administration Ondansetron HCl 4 mg 05/03/21 22:28 Ondansetron Hcl 4 Mg/2 Ml Vial IVPUSH Q8H PRN Nausea and Vomiting Quetiapine Fumarate 25 mg 05/06/21 11:04 Quetiapine Fumarate 25 Mg Tablet PO BEDTIME PRN anxiety/restlessness Sodium Chloride 3 ml 05/04/21 00:00 05/07/21 07:21 0.9 % Sodium Chloride Flush 3 Ml Syringe IVFLUSH 3 ml QSHIFT CHANO Administration Zinc Sulfate 220 mg 05/06/21 09:00 05/07/21 07:20 Zinc Sulfate 220 Mg Capsule PO 220 mg DAILY CHANO Administration Labs CBC & Chem 7: 05/06/21 06:01 05/06/21 07:59 Labs: Laboratory Results - last 24 hr 05/06/21 05/06/21 15:55 19:57 POC Glucose 129 H 153 H Assessment and Plan (1) Acute respiratory failure with hypoxia: Status: Acute (2) Pneumonia due to 2019 novel coronavirus: Status: Acute Assessment and Plan: 75-year-old male who presents to the hospital with weakness and falls with a positive COVID test 4 days ago. acute respiratory failure with hypoxia due to COVID-19 pneumonia Day 02/10 IV Decadron hypothyroidism continue levothyroxine hypertension lisinopril and amlodipine DVT prophylaxis Heparin subQ Quality Stroke Does the patient have a stroke diagnosis?: No VTE Prior VTE?: No VTE Risk Level:: Medical - moderate - high VTE Device Contraindication: Treatment Not Indicated VTE Drug Contraindication: N/A - Med Ordered
[2021-05-07 14:29] LABS: Anion Gap 16 (12-20); Blood Urea Nitrogen 27 mg/dL (9-16); Calcium 7.6 mg/dL (8.4-10.2); Carbon Dioxide 19 mmol/L (22-29); Chloride 98 mmol/L (96-108); Creatinine Clr Calc Pharmacy 68.9; Estimated Glomerular Filt Rate > 60; Glucose Random 182 mg/dL (60-115); Potassium 4.4 mmol/L (3.3-5.1); Sodium 129 mmol/L (135-145)
[2021-05-07 14:30] LABS: B Type Natriuretic Peptide 108 pg/mL (<100)
[2021-05-08] VITALS (19 sets, daily range): BP systolic 76–160; BP diastolic 42–70; PULSE 87–140; RESP 17–30; TEMP 36.6–38; O2SAT 81–92
--- NOTE | 2021-05-08 04:33 | PC.NURSE ---
RN responded to bed alarm and found patient in bathroom without NRB on. O2 sat down to 70s. Pt assisted back to bed and NRB reapplied. Pt educated on importance of using call fajardo to ask for assistance before getting OOB and to keep his oxygen mask on at all times.
[2021-05-08 06:10] LABS: Hematocrit 40.8 % (42-52); Hemoglobin 13.7 g/dl (14.0-18.0); Mean Corpuscular HGB Conc 33.6 g/dl (31.0-36.0); Mean Corpuscular Hemoglobin 30.4 pg (27.0-33.0); Mean Corpuscular Volume 90.5 fL (80-98); Mean Platelet Volume 9.9 fL (9.4-12.4); Platelet Count 176 X10*3/uL (160-400); Red Blood Count 4.51 X10*6/uL (4.60-5.80); Red Cell Distribution Width 13.2 % (11.0-16.0); White Blood Count 7.7 X10*3/uL (4.8-10.8)
[2021-05-08] MEDS: Omeprazole 20 MG CAPSULE.DR PO (06:10)
[2021-05-08 06:28] LABS: D Dimer 1358 NG/ML
[2021-05-08 06:33] LABS: Anion Gap 15 (12-20); Blood Urea Nitrogen 24 mg/dL (9-16); Calcium 7.9 mg/dL (8.4-10.2); Carbon Dioxide 24 mmol/L (22-29); Chloride 99 mmol/L (96-108); Creatinine Clr Calc Pharmacy 79.8; Estimated Glomerular Filt Rate > 60; Glucose Fasting 110 mg/dL (60-99); Lactate Dehydrogenase 443 U/L (118-273); Potassium 4.5 mmol/L (3.3-5.1); Sodium 133 mmol/L (135-145)
--- NOTE | 2021-05-08 08:39 | MHC.CM.PN ---
at this time dc plan remains the same, for patient to return home no svcs. vs. vna. cm to cont. to follow.
[2021-05-08] MEDS: Zinc Sulfate 220 MG CAPSULE PO (09:01)
[2021-05-08] MEDS: dexAMETHasone sod phosphate 4 MG/ML VIAL 6 MG IVPUSH (09:01)
[2021-05-08] MEDS: Atorvastatin Calcium 80 MG TABLET PO (09:01)
[2021-05-08] MEDS: 0.9 % Sodium Chloride Flush 3 ML SYRINGE IVFLUSH (09:01)
[2021-05-08] MEDS: amLODIPine Besylate 10 MG TABLET PO (09:01)
[2021-05-08] MEDS: Ascorbic Acid 500 MG TABLET 1000 MG PO (09:02)
[2021-05-08] MEDS: Levothyroxine Sodium 125 MCG TABLET PO (09:02)
[2021-05-08] MEDS: Heparin Sodium,Porcine 5,000 UNIT/ML VIAL 5000 UNIT SUBCUT ×2 (10:54→22:12)
--- NOTE | 2021-05-08 11:53 | HO.PM.IMPN ---
Subjective Subjective Date of Service: 05/08/21 Interval History: sob Constitutional Constitutional: Reports no additional constitutional complaints Eyes Eyes: Reports no additional eye complaints Physical Exam Vital Signs: Vital Signs: Last Vital Signs Temp 98.8 F 05/08/21 07:45 Pulse 93 05/08/21 09:02 Resp 23 H 05/08/21 07:45 BP 131/58 L 05/08/21 09:02 Pulse Ox 89 L 05/08/21 07:45 Body Mass Index 29.5 General: lethargic O X 3, sob Resp:? Crackles CVS: S1,S2,RRR GI: soft, non tender, non distended Neuro:? motor grossly intact Psych: appropriate affect Objective Data Current Medications Generic Name Dose Route Start Last Admin Trade Name Henrryq PRN Reason Stop Dose Admin Acetaminophen 650 mg 05/03/21 22:28 Acetaminophen 325 Mg Tablet PO Q6H PRN Pain, Mild (Pain Scale 1-3) Amlodipine Besylate 10 mg 05/04/21 09:00 05/08/21 09:01 Amlodipine Besylate 10 Mg Tablet PO 10 mg DAILY CHANO Administration Protocol Ascorbic Acid 1,000 mg 05/06/21 09:00 05/08/21 09:02 Ascorbic Acid 500 Mg Tablet PO 1,000 mg DAILY CHANO Administration Atorvastatin Calcium 80 mg 05/04/21 09:00 05/08/21 09:01 Atorvastatin Calcium 80 Mg Tablet PO 80 mg DAILY CHANO Administration Dexamethasone Sodium Phosphate 6 mg 05/04/21 09:00 05/08/21 09:01 Dexamethasone Sod Phosphate 4 Mg/Ml Vial IVPUSH 6 mg DAILY CHANO Administration Docusate Sodium 100 mg 05/03/21 22:28 Docusate Sodium 100 Mg Capsule PO DAILY PRN Constipation Guaifenesin/Dextromethorphan 5 ml 05/07/21 07:44 05/07/21 08:12 Guaifenesin Dm 100/10/5 Ml 5 Ml Syrup PO 5 ml Q4H PRN Administration cough Heparin Sodium (Porcine) 5,000 unit 05/03/21 23:00 05/08/21 10:54 Heparin Sodium,Porcine 5,000 Unit/Ml Vial SUBCUT 5,000 unit Q12H CHANO Administration Levothyroxine Sodium 125 mcg 05/04/21 09:00 05/08/21 09:02 Levothyroxine Sodium 125 Mcg Tablet PO 125 mcg DAILY CHANO Administration Lisinopril 40 mg 05/04/21 09:00 05/08/21 09:02 Lisinopril 40 Mg Tablet PO 40 mg DAILY CHANO Administration Protocol Lorazepam 0.5 mg 05/06/21 11:04 05/07/21 08:12 Lorazepam 0.5 Mg Tablet PO 0.5 mg DAILY PRN Administration Insomnia Omeprazole 20 mg 05/04/21 06:30 05/08/21 06:10 Omeprazole 20 Mg Capsule. PO 20 mg BID@0030,5180 CHANO Administration Ondansetron HCl 4 mg 05/03/21 22:28 Ondansetron Hcl 4 Mg/2 Ml Vial IVPUSH Q8H PRN Nausea and Vomiting Quetiapine Fumarate 25 mg 05/06/21 11:04 Quetiapine Fumarate 25 Mg Tablet PO BEDTIME PRN anxiety/restlessness Sodium Chloride 3 ml 05/04/21 00:00 05/08/21 09:01 0.9 % Sodium Chloride Flush 3 Ml Syringe IVFLUSH 3 ml QSHIFT CHANO Administration Zinc Sulfate 220 mg 05/06/21 09:00 05/08/21 09:01 Zinc Sulfate 220 Mg Capsule PO 220 mg DAILY CHANO Administration Labs CBC & Chem 7: 05/08/21 05:41 05/08/21 05:41 Labs: Laboratory Results - last 24 hr 05/07/21 05/07/21 05/08/21 13:38 13:38 05:41 MCV 90.5 MCH 30.4 MCHC 33.6 RDW 13.2 Plt Count 176 MPV 9.9 Absolute Nucleated RBC 0.000 Nucleated RBC % (auto) 0.0 D-Dimer Anion Gap 16 Estim Creat Clear Calc 68.9 Estimated GFR > 60 Random Glucose 182 H D Fasting Glucose Calcium 7.6 L D Lactate Dehydrogenase C-Reactive Protein B-Natriuretic Peptide 108 H 05/08/21 05/08/21 05:41 05:41 MCV MCH MCHC RDW Plt Count MPV Absolute Nucleated RBC Nucleated RBC % (auto) D-Dimer 1358 Anion Gap 15 Estim Creat Clear Calc 79.8 Estimated GFR > 60 Random Glucose Fasting Glucose 110 H Calcium 7.9 L Lactate Dehydrogenase 443 H C-Reactive Protein 7.50 H B-Natriuretic Peptide Assessment and Plan (1) Acute respiratory failure with hypoxia: Status: Acute (2) Pneumonia due to 2019 novel coronavirus: Status: Acute Assessment and Plan: 75-year-old male who presents to the hospital with weakness and falls with a positive COVID test 4 days ago. acute respiratory failure with hypoxia due to COVID-19 pneumonia Day 03/13 IV Decadron hypothyroidism continue levothyroxine hypertension lisinopril and amlodipine DVT prophylaxis Heparin subQ Quality Stroke Does the patient have a stroke diagnosis?: No VTE Prior VTE?: No VTE Risk Level:: Medical - moderate - high VTE Device Contraindication: Treatment Not Indicated VTE Drug Contraindication: N/A - Med Ordered
--- NOTE | 2021-05-08 15:20 | PM.CCN ---
Critical Care Event Note Summary Date of Service: 05/08/21 Code activated: No Narrative: 75-year-old gentleman with underlying CAD status post CABG, COVID positive on 04/29/21 admitted on 05/03/2021 with fall and hypoxemia, hospital course significant for progressive hypoxemia. Treated with dexamethasone. Now with worsening FiO2 requirements now requiring high-flow nasal cannula at 100% non-rebreather being transferred to intensive care unit for further management. Critical Care Time (minutes): 0
--- NOTE | 2021-05-08 16:23 | PC.NURSE ---
Upon initial assessment, this RN noted patient to be sating high 70s - low/mid 80s maxed out on high flow and a non-rebreather. This RN was notified by previous RN that patient had been accepted by preschool teacher assistant already. This RN assessed patient, patient noted to be tachypneic, accessory muscles used, lungs dim throughout all lobes. This RN called nursing supervisor orchard and was given bed assignment in ICU. Report given to accepting [employer]MENT FIELD MECHANIC, Respiratory at bedside to assist with transfer. This RN explained transfer plans to patient, patient states understanding. Patient brought down to ICU. Bedside handoff given.
--- NOTE | 2021-05-08 17:09 | W.PM.CCHP ---
Procedures Date of Service Date of Service: 05/08/21 Central Line Placement Right IJ: Central Line Comments: Right internal jugular triple-lumen central venous catheter emergently placed for vasopressor support under ultrasound guidance and usual sterile conditions with no immediate complications. X-ray for line position is pending.
--- NOTE | 2021-05-08 17:10 | W.PM.CCHP ---
Procedures Date of Service Date of Service: 05/08/21 Intubation Intubation Comments: Patient emergently intubated for refractory hypoxemia not responsive to CPAP support with 7.5 ET tube utilizing glidescope to observe ET tube passage through vocal cords with no immediate complications. X-ray for ET tube position is pending. Sedative: propofol
[2021-05-08 17:37] LABS: VBG Base Excess -5.3 mmol/L; VBG HCO3 22 mmol/L (22-26); VBG pCO2 53 mmHg; VBG pH 7.23 (7.32-7.43); VBG pO2 38 mmHg
[2021-05-08] MEDS: Cisatracurium Besylate 20 MG/10 ML VIAL 10 MG IVPUSH (17:57)
[2021-05-08] MEDS: EPINEPHrine 1 MG/10 ML SYRINGE IVPUSH (17:58)
--- NOTE | 2021-05-08 18:33 | PC.NURSE ---
Received Mr Carvajal emergently from [facility] [place] post hospitalist report to Dr Garcia. Pt with SPO2 of 68 to 78 %. Lethargic with NRB at 15 liters. C-pap, Bi-pap placed without success. Dr Garcia at bedside and pt sedated with 200mg of propofol, started on NS at 999. 10mg Nimbex also given. Propofol @ 45 mcgs. Intubated with 7.5, 25 at the LL.Vent settings adjusted to AC/PC 100%, 18 of Peep. Rate of 28. Recinos, right IJ TLC, OG placed and confirmed by x-Ray. Family updated and HCP came in. All updated. Propofol currently at 45 mcgs/kg/hr. Nor-epi at 0.07 mcgs per kg per hr.
[2021-05-08 19:06] LABS: Venous Blood Gas Refer to POC result
[2021-05-08] MEDS: Chlorhexidine Gluc Oral Rinse 15 ML MOUTHWASH BUCCAL (22:12)
--- NOTE | 2021-05-08 22:24 | PM.EVENT ---
Event Note Date of Service: 05/08/21 Event Note: Code status was addressed again with patient's HCP son Stefan and daughter in law Erinn both in agreement to make patient DNR.
[2021-05-09] VITALS (15 sets, daily range): BP systolic 87–140; BP diastolic 37–62; PULSE 75–127; RESP 22–30; TEMP 37.9–38.8; O2SAT 82–90; BMI 29.5
[2021-05-09] MEDS: Furosemide 40 MG/4 ML VIAL IVPUSH (02:51)
--- NOTE | 2021-05-09 04:15 | PC.NURSE ---
Tmax 100.8 core. Afib on tele, HR 90-130s. Levophed maxed at 2200, MAP 50s, new order for vasopressin. Pt sedated on propofol, unarousable, titrated for vent synchrony. ETT #7.5, 25 cm at lip. AC/PC vent settings- f 28, Pi 18, PEEP 18, 100% FiO2. Vt 400-600s, Ve 15, EtCO2 19-22. OGT clamped. Minimal UOP, 40 IVP lasix given x1 with no effect. LOAN REPRESENTATIVE aware. Family brought in HCP form, code status changed to DNR, aware of plan of care for pt.
[2021-05-09 06:20] LABS: Basophils Percent Auto 0.2 % (0-2); Hematocrit 41.8 % (42-52); Hemoglobin 13.2 g/dl (14.0-18.0); Imm Gran Pct Auto 1.6 % (0.0-0.4); Lymphocytes Absolute Auto 0.9 X10*3/uL (1.2-4.9); Lymphocytes Percent Auto 4.9 % (20-40); MANUAL DIFF FLAG SCAN; Mean Corpuscular HGB Conc 31.6 g/dl (31.0-36.0); Mean Corpuscular Hemoglobin 29.9 pg (27.0-33.0); Mean Corpuscular Volume 94.6 fL (80-98); Mean Platelet Volume 9.5 fL (9.4-12.4); Monocytes Percent Auto 5.2 % (2-11); NRBC Pct Auto 0.1 /100WBC (0.0-0.2); Neutrophils Absolute Auto 16.9 X10*3/uL (2.0-8.3); Neutrophils Percent Auto 88.1 % (45-73); Platelet Count 368 X10*3/uL (160-400); Red Blood Count 4.42 X10*6/uL (4.60-5.80); Red Cell Distribution Width 13.5 % (11.0-16.0); SCAN SMEAR FLAG 1; White Blood Count 19.1 X10*3/uL (4.8-10.8)
[2021-05-09 06:22] LABS: VBG Base Excess -9.9 mmol/L; VBG HCO3 18 mmol/L (22-26); VBG pCO2 47 mmHg; VBG pH 7.18 (7.32-7.43); VBG pO2 53 mmHg
[2021-05-09 06:22] LABS: Venous Blood Gas Refer to POC result
[2021-05-09 06:55] LABS: SLIDE REVIEW VERIFIED
[2021-05-09 07:12] LABS: Alanine Aminotransferase 32 U/L (0-40); Albumin Level 3.2 g/dL (3.5-5.0); Alkaline Phosphatase 75 U/L (39-117); Anion Gap 22 (12-20); Aspartate Amino Transferase 62 U/L (5-37); Bilirubin Total 0.7 mg/dL (0.0-1.0); Blood Urea Nitrogen 40 mg/dL (9-16); Calcium 7.5 mg/dL (8.4-10.2); Carbon Dioxide 17 mmol/L (22-29); Chloride 98 mmol/L (96-108); Creatinine Clr Calc Pharmacy 26.2; Estimated Glomerular Filt Rate 23; Glucose Random 170 mg/dL (60-115); Magnesium 2.3 mg/dL (1.6-2.6); Phosphorus 7.8 mg/dL (2.7-4.5); Potassium 5.4 mmol/L (3.3-5.1); Sodium 132 mmol/L (135-145); Total Protein 6.5 g/dL (6.5-8.0)
[2021-05-09] MEDS: dexAMETHasone sod phosphate 4 MG/ML VIAL 6 MG IVPUSH (07:39)
[2021-05-09] MEDS: Chlorhexidine Gluc Oral Rinse 15 ML MOUTHWASH BUCCAL (07:39)
[2021-05-09] MEDS: 0.9 % Sodium Chloride Flush 3 ML SYRINGE IVFLUSH (07:39)
[2021-05-09] MEDS: Famotidine/PF 20 MG/2 ML VIAL IVPUSH (07:40)
[2021-05-09] MEDS: Levothyroxine Sodium 125 MCG TABLET PO (07:40)
[2021-05-09] MEDS: Sodium Bicarbonate 8.4% 50 MEQ/50 ML VIAL IVPUSH (09:07)
[2021-05-09] MEDS: Sodium Bicarbonate 8.4% 150 MEQ in Dextrose 5 % 850 ML 50 MEQ IV (09:29)
[2021-05-09] MEDS: Piperacillin Sodium/Tazobactam 3.375 GM in 0.9 % Sodium Chloride 50 ML IV (09:29)
--- NOTE | 2021-05-09 10:06 | MHC.CLN ---
RE: CONSULT SEE CLINICAL NUTRITION ASSESSMENT
[2021-05-09] MEDS: Heparin Sodium,Porcine 5,000 UNIT/ML VIAL 5000 UNIT SUBCUT (11:20)
--- NOTE | 2021-05-09 12:00 | PM.CCN ---
Critical Care Event Note Summary Date of Service: 05/09/21 Code activated: No Narrative: Family meeting held and overall very poor clinical prognosis discussed with both healthcare proxies who decided to change goals of care to palliation. Status changed to comfort measures only. Patient will be terminal extubated. Critical Care Time (minutes): 0
[2021-05-09] MEDS: LORazepam 2 MG/ML VIAL IVPUSH (12:12)
[2021-05-09] MEDS: fentaNYL citrate/PF 100 MCG/2 ML VIAL IVPUSH (12:12)
--- NOTE | 2021-05-09 12:49 | PC.NURSE ---
Patient in ICU while intubated for COVID PNA. Pressors of Levophed and Vasopressin at max dose rates. Sedated on Propofol also at max, no cough/gag. Febrile 101.8F Afib on monitor, rates 90s-130s. Vent on PC settings with set rate 28 breaths, 18/18 on 100% FiO2. Min volumes 15. SpO2 86-91% Zosyn started per orders, bicarb IVP given for etCO2 of 16. Bicarb drip also started at 50mL/hr. Rhythm conversion to NSR at 10:00. Family discussion with RN and MD. Made NEGOTIATIONS DIRECTOR status upon family arrival. 12:12 Fentanyl 100mcg and Ativan 2mg given IVP. Patient extubated. Two sons in room with patient in full PPE. RR 14 with shallow breaths. Patient arrived at [facility] at 12:37. Organ bank notified, case denied, Ref# [id number], Agent: Johana.
--- NOTE | 2021-05-09 12:59 | PM.DDS ---
Discharge Sum: Prov Provider Primary care physician: Jam Lugo MD Discharge Sum: Diag PCOD Cause of : Acute hypoxemic respiratory failure due to COVID-19 Contributing Factors (1) Acute kidney injury: (2) Acute respiratory distress syndrome (ARDS) due to COVID-19 virus: (3) Viral sepsis: (4) Shock: (5) CAD (coronary artery disease): (6) Hypertension: (7) Hypothyroidism: Discharge Sum: Summary Date and Time Date of admission: 05/03/21 22:19 Date of : 05/09/21 Time of : 11:37 Summary Details: 75-year-old gentleman with underlying history of CAD status post CABG, hypothyroidism, hypertension COVID-19 positive on 04/29/2021 admitted on 05/03/2021 with following hypoxemia. Not a candidate for remdesivir secondary to time since symptom onset. Treated with dexamethasone. Hospital course significant for progressively worsening acute hypoxic respiratory failure with rapid decline on 05/08/2021 requiring transfer to intensive care unit and intubation. Further complicated by acute kidney injury and viral shock requiring placement of central venous access and high-dose vasopressor support. Patient with rapid clinical deterioration during the next 24 hours. Several family meetings held with healthcare proxies with initial change of code status to do not resuscitate on 05/08/2021 and secondary to very poor clinical prognosis change in goals of care to palliation on 05/09/2021. Code status changed to comfort measures only and patient terminally extubated. Patient noted to have asystole on 05/09/2021 at 11:37 a.m. On my exam no spontaneous respirations, no pulse, no corneal or gag reflex. Family at the bedside. Additional Data Attending physician: Jasiel Garcia MD
== END 2021-05-09 12:37 | disposition expired | DRG 208 ==
LOC: HO.ED 21:03 → HO.EDOVER 22:41 → HO.IMC 22:53 → HO.ICU 05-08 15:48
PROVIDERS: Internal Medicine; Student in an Organized Health Care Education/Training Program; Admitting Provider Internal Medicine; Emergency Provider Emergency Medicine Emergency Medical Services; PCP Internal Medicine; Visit Provider Internal Medicine Pulmonary Disease
DX: U07.1 COVID-19 (principal); J12.89 Other viral pneumonia; A41.89 Other specified sepsis; R65.21 Severe sepsis with septic shock; J80 Acute respiratory distress syndrome; N17.9 Acute kidney failure, unspecified; I10 Essential (primary) hypertension; E03.9 Hypothyroidism, unspecified; I25.10 Atherosclerotic heart disease of native coronary artery without angina pectoris; Z95.1 Presence of aortocoronary bypass graft; Z79.890 Hormone replacement therapy; Z79.899 Other long term (current) drug therapy; Z66 Do not resuscitate; Z51.5 Encounter for palliative care
CPT/HCPCS: 36415; 71045; 71046; 71275; 80048; 80053; 80076; 82247; 82728; 82803; 82947; 83605; 83615; 83735; 83880; 84100; 84145; 84484; 85025; 85027; 85379; 85610; 85730; 86140; 87040; 93005; 94002; 94003; 94799; 96361; 96374; 97162; 99285; J0171; J1100; J1940; J2060; J2543; J3010; Q9967